=== PATIENT | male | born 1970 | race Two or more races ===

== ENCOUNTER 2020-06-16 16:21 | Emergency (ER) | payer MEDICARE, MEDICAID, SELFPAY ==
--- NOTE | 2020-06-16 16:47 | ECG_ITS ---
Test Reason : RT SIDE CHEST PAIN Blood Pressure : / mmHG Vent. Rate : 071 BPM Atrial Rate : 071 BPM P-R Int : 124 ms QRS Dur : 100 ms QT Int : 368 ms P-R-T Axes : 030 -45 022 degrees QTc Int : 399 ms Normal sinus rhythm Left anterior fascicular block Minimal voltage criteria for LVH, may be normal variant Abnormal ECG When compared with ECG of 24-OCT-2008 19:49, No significant changes seen Referred By: Generic ED Physician Electronically Signed By:RISSA ANSARI MD
[2020-06-16 18:37] VITALS: BP 140/73; PULSE 68; RESP 18; TEMP 36.9; O2SAT 99; BMI 25.7
[2020-06-16 19:59] VITALS: BP 156/77; PULSE 85; RESP 10; TEMP 36.6; O2SAT 98
--- NOTE | 2020-06-16 20:06 | ED_ITS ---
HPI - Chest Pain General Chief Complaint: Chest Pain Stated Complaint: Chest pain Time Seen by Provider: 06/16/20 21:33 Source: patient Mode of arrival: ambulatory Limitations: no limitations History of Present Illness HPI narrative: 50-year-old male no significant past medical history presents with 1 week of substernal chest pain. He does not describe any shortness of breath, dizziness, lightheadedness, nausea, abdominal pain, abdominal distention, fevers or chills. Does not describe any significant physical exertion, trauma or injury. He stated the pain started while he was resting and has remained the same since Friday. The pain does not change with position, exertion, inspiration, or palpation. He does not take any medications, denies illicit drug And alcohol use, and tobacco products. Onset (ago): day(s) (6) Timing of current episode: constant Prior episodes: No Onset: during rest Pain location: substernal Pain radiation: none Severity: moderate Pain scale (0-10): 6 Quality: aching Relieving factors: nothing Exacerbating factors: nothing Treatment prior to arrival: none Risk Factors Coronary artery disease risk factors: none Thoracic aortic dissection risk factors: none Related Data Allergies Allergy/AdvReac Type Severity Reaction Status Date / Time No Known Allergies Allergy Verified 06/16/20 18:39 Review of Systems Review of Systems: Constitutional: No Weight loss, No Fever, No Chills, No Night Sweats, No Fatigue, No Malaise ENT/Mouth: No Hearing loss, No Ear Pain, No Nasal Congestion, No Sinus Pain, No Hoarseness, No sore throat, No Rhinorrhea, No Swallowing Difficulty Eyes: No Eye Pain, No Swelling, No Redness, No Foreign Body, No Discharge, No Vision Changes Cardiovascular: pos Chest Pain, no SOB, no Dyspnea on Exertion, No Orthopnea, No Edema, No Palpitations Respiratory: No Cough, No Sputum, No Wheezing, No Smoke Exposure, No Dyspnea Gastrointestinal: no Nausea, No Vomiting, No Diarrhea, No abdominal Pain, No Hematochezia, No Melena Genitourinary: No irregular bleeding, No Dysuria, No Urinary Frequency, No Hematuria, No Urinary Incontinence, No Urgency, No Flank Pain, No Urinary Flow Changes, No Hesitancy Musculoskeletal: No joint pain, No Myalgias, No Joint Swelling Skin: No Skin Lesions, No rash Neuro: No Weakness, No Numbness, No Paresthesias, No Loss of Consciousness, No Dizziness, No Headache Psych: No Anxiety/Panic, No Depression, No SI/HI/AH/VH Heme/Lymph: No Bruising, No Bleeding,No Lymphadenopathy Endocrine: No Polyuria, No Polydipsia, No Temperature Intolerance FOR[facility] Past Medical History Attestation statement: The following information was validated with the patient. Source: unable to obtain Social History Social History Alcohol intake: never Smoking Status: Never smoker Use of substances other than those prescribed or required for medical reasons: No Advance Directives: No Advance Directives Information Provided: Yes Physical Exam Vital Signs: Vital Signs: Last Vital Signs Temp 98.2 F 06/16/20 21:36 Pulse 80 06/16/20 21:36 Resp 17 06/16/20 21:36 BP 141/78 H 06/16/20 21:36 Pulse Ox 97 06/16/20 21:36 Body Mass Index 25.7 Appearance: Alert. Oriented X3. No acute distress. Eyes: Pupils equal, round and reactive to light. ENT: Pharynx normal. Neck: Normal inspection. Neck supple. CVS: Normal heart rate and rhythm. Pulses normal. Respiratory: No respiratory distress. Breath sounds normal. Abdomen: Soft and nontender. Skin: Skin warm and dry. Normal skin color. Normal skin turgor. Extremities: No lower extremity edema. Neuro: No motor deficit. No sensory deficit. Course Course Course Narrative: 50-year-old male with no significant past medical history presents with 1 week of chest pain that is substernal. Plan of care is to rule out ACS, CBC, Chem 7, Troponin, chest x-ray. labs are unremarkable, troponin is negative, toxicology is negative. Patient is speaking in a harsh tone to RN and this WOOD LATHER regarding length of stay, states that he would like to leave. plan of care discussed with patient, patient should follow-up with his primary care physician for further workup, senior applications developer utilized for all correspondence, Google translate utilized for discharge instructions. Patient verbalized understanding of and agrees to plan of care discharge home. MDM - Chest Pain Differential Diagnosis Differential diagnosis: Likely pneumothorax, atypical chest pain, st elevation myocardial infarction, costochondritis and chest pain Medical Records Data Attestation: I reviewed the patient's medical records. Lab Data Attestation: I reviewed the patient's lab results. Result diagrams: 06/16/20 20:37 06/16/20 20:37 Labs: Lab Results 06/16/20 06/16/20 06/16/20 Range/Units 20:37 20:37 20:37 WBC 10.8 (4.8-10.8) X10*3/uL RBC 5.05 (4.60-5.80) X10*6/uL Hgb 15.9 (14.0-18.0) g/dl Hct 45.5 (42-52) % MCV 90.1 (80-98) fL MCH 31.5 (27.0-33.0) pg MCHC 34.9 (31.0-36.0) g/dl RDW 11.8 (11.0-16.0) % Plt Count 355 (160-400) X10*3/uL MPV 8.9 L (9.4-12.4) fL Immature Gran % (Auto) 0.2 (0.0-0.4) % Neut % (Auto) 71.9 (45-73) % Lymph % (Auto) 21.3 (20-40) % [place] % (Auto) 5.8 (2-11) % Eos % (Auto) 0.4 (0-4) % Baso % (Auto) 0.4 (0-2) % Lymph # (Auto) 2.3 (1.2-4.9) X10*3/uL [place] # (Auto) 0.6 (0.1-1.2) X10*3/uL Eos # (Auto) 0.0 (0.0-0.4) X10*3/uL Baso # (Auto) 0.0 (0.0-0.2) X10*3/uL Abs Immat Gran (auto) 0.02 (0.00-0.03) X10*3/uL Absolute Neuts (auto) 7.7 (2.0-8.3) X10*3/uL Absolute Nucleated RBC 0.000 (0.0-0.012) X10*3/uL Nucleated RBC % (auto) 0.0 (0.0-0.2) /100WBC Sodium 139 (135-145) mmol/L Potassium 3.9 (3.3-5.1) mmol/l Chloride 99 (96-108) mmol/L Carbon Dioxide 29 (22-29) mmol/L Anion Gap 15 (12-20) BUN 13 (9-16) mg/dL Creatinine 1.01 (0.5-1.4) mg/dL Estim Creat Clear Calc 74.0 Estimated GFR > 60 Random Glucose 108 (60-115) mg/dL Calcium 9.6 (8.4-10.2) mg/dL Magnesium 2.1 (1.6-2.6) mg/dL Total Bilirubin 0.4 (0.0-1.0) mg/dL Direct Bilirubin < 0.2 (0.0-0.5) mg/dL AST 20 (5-37) U/L ALT 24 (0-40) U/L Alkaline Phosphatase 65 (39-117) U/L Troponin I High Sens 6.9 (<3.5-35.0) ng/L Total Protein 7.7 (6.5-8.0) g/dL Albumin 4.8 (3.5-5.0) g/dL Lipase 29 (8-78) U/L Urine Opiates Screen (Not Detect) Ur Barbiturates Screen (Not Detect) Ur Phencyclidine Scrn (Not Detect) Ur Amphetamines Screen (Not Detect) U Benzodiazepines Scrn (Not Detect) Urine Cocaine Screen (Not Detect) U Marijuana (THC) Screen (Not Detect) Ethyl Alcohol mg/dL 06/16/20 06/16/20 Range/Units 20:37 20:37 WBC (4.8-10.8) X10*3/uL RBC (4.60-5.80) X10*6/uL Hgb (14.0-18.0) g/dl Hct (42-52) % MCV (80-98) fL MCH (27.0-33.0) pg MCHC (31.0-36.0) g/dl RDW (11.0-16.0) % Plt Count (160-400) X10*3/uL MPV (9.4-12.4) fL Immature Gran % (Auto) (0.0-0.4) % Neut % (Auto) (45-73) % Lymph % (Auto) (20-40) % [place] % (Auto) (2-11) % Eos % (Auto) (0-4) % Baso % (Auto) (0-2) % Lymph # (Auto) (1.2-4.9) X10*3/uL [place] # (Auto) (0.1-1.2) X10*3/uL Eos # (Auto) (0.0-0.4) X10*3/uL Baso # (Auto) (0.0-0.2) X10*3/uL Abs Immat Gran (auto) (0.00-0.03) X10*3/uL Absolute Neuts (auto) (2.0-8.3) X10*3/uL Absolute Nucleated RBC (0.0-0.012) X10*3/uL Nucleated RBC % (auto) (0.0-0.2) /100WBC Sodium (135-145) mmol/L Potassium (3.3-5.1) mmol/l Chloride (96-108) mmol/L Carbon Dioxide (22-29) mmol/L Anion Gap (12-20) BUN (9-16) mg/dL Creatinine (0.5-1.4) mg/dL Estim Creat Clear Calc Estimated GFR Random Glucose (60-115) mg/dL Calcium (8.4-10.2) mg/dL Magnesium (1.6-2.6) mg/dL Total Bilirubin (0.0-1.0) mg/dL Direct Bilirubin (0.0-0.5) mg/dL AST (5-37) U/L ALT (0-40) U/L Alkaline Phosphatase (39-117) U/L Troponin I High Sens (<3.5-35.0) ng/L Total Protein (6.5-8.0) g/dL Albumin (3.5-5.0) g/dL Lipase (8-78) U/L Urine Opiates Screen Not Detected (Not Detect) Ur Barbiturates Screen Not Detected (Not Detect) Ur Phencyclidine Scrn Not Detected (Not Detect) Ur Amphetamines Screen Not Detected (Not Detect) U Benzodiazepines Scrn Not Detected (Not Detect) Urine Cocaine Screen Not Detected (Not Detect) U Marijuana (THC) Screen Not Detected (Not Detect) Ethyl Alcohol < 10 mg/dL Imaging Data Chest x-ray: Attestation: I personally reviewed and interpreted this imaging study as follows: Radiologist's impression: CLINICAL INFORMATION: Chest pain COMPARISON: 10/24/2008 TECHNIQUE: 2 views of the chest were obtained. FINDINGS: There has been mild progression of the thoracic scoliosis convex to the left. The heart and pulmonary vessels are normal. No infiltrates, effusions or lung masses are seen. XR/XR chest 2V IMPRESSION: No acute intrathoracic disease. ECG Data ECG #1: Attestation: I personally reviewed and interpreted this ECG as follows: ECG interpretation date: 06/16/20 ECG interpretation time: 16:59 Interpretation: Vent. Rate : 071 BPM Atrial Rate : 071 BPM P-R Int : 124 ms QRS Dur : 100 ms QT Int : 368 ms P-R-T Axes : 030 -45 022 degrees QTc Int : 399 ms Normal sinus rhythm Left anterior fascicular block Minimal voltage criteria for LVH, may be normal variant Abnormal ECG When compared with ECG of 24-OCT-2008 19:49, ST no longer depressed in Inferior leads Scores Heart Score History: -0- slightly suspicious ECG: -1- non specific repolarization disturbance Age: -1- >45 - <65 Risk factory: -0- no risk factors known Troponin: -0- < or = normal limit Score: 2 Risk: 1.7% Discharge Plan Discharge Clinical Impression: Atypical chest pain Patient Disposition: Home, Self-Care Instructions: Chest Pain (ED) Additional Instructions: se le evalu? darien varias semanas de dolor en el pecho. Por favor, belinda un seguimiento con el m?dico de atenci?n primaria para el seguimiento en la pr?xima semana. Mueller electrocardiograma mostr? mejor?a darien el a?o pasado y es un ritmo sinusal normal con un bloque fascicular cristal. No hay nuevos cambios en mueller electrocardiograma con la excepci?n de la mejora de los cambios de onda ST. Tus enzimas card?acas fueron negativas. Tu radiograf?a de t?rax era normal. Si el dolor en el pecho persiste o tiene problemas para respirar o tiene cualquier otro s?ntoma emergente, por favor regrese al departamento de emergencias inmediatamente. Adam por elegir lory departamento de emergencias para la evaluaci?n. Por favor, belinda un seguimiento con el m?dico de atenci?n primaria seg?n sea necesar io. Regrese al servicio de urgencias para cualquier s?ntoma nuevo, preocupante o que empeore. you were evaluated for several weeks of chest pain. Please follow-up with primary care physician for follow-up in the next week. Your EKG showed improvement over the past year and is normal sinus rhythm with a left fascicular block. No new changes to your EKG with the exception of the improvement of the ST wave changes. Your cardiac enzymes were negative. Your chest x-ray was normal. If chest pain persists or you have trouble breathing or have any other emergent symptoms please return to the emergency department immediately. Thank you for choosing this emergency department for evaluation. Please follow-up with primary care physician as needed. Return to the emergency department for any new, concerning, or worsening symptoms. Discharge Date/Time: 06/16/20 22:29 Print Language: Canadian
--- NOTE | 2020-06-16 20:06 | XR_ITS ---
EXAMINATION: XR CHEST CLINICAL INFORMATION: Chest pain COMPARISON: 10/24/2008 TECHNIQUE: 2 views of the chest were obtained. FINDINGS: There has been mild progression of the thoracic scoliosis convex to the left. The heart and pulmonary vessels are normal. No infiltrates, effusions or lung masses are seen. XR/XR chest 2V IMPRESSION: No acute intrathoracic disease.
[2020-06-16 20:45] LABS: Basophils Percent Auto 0.4 % (0-2); Eosinophils Percent Auto 0.4 % (0-4); Hematocrit 45.5 % (42-52); Hemoglobin 15.9 g/dl (14.0-18.0); Imm Gran Abs Auto 0.02 X10*3/uL (0.00-0.03); Imm Gran Pct Auto 0.2 % (0.0-0.4); Lymphocytes Absolute Auto 2.3 X10*3/uL (1.2-4.9); Lymphocytes Percent Auto 21.3 % (20-40); MANUAL DIFF FLAG NO; Mean Corpuscular HGB Conc 34.9 g/dl (31.0-36.0); Mean Corpuscular Hemoglobin 31.5 pg (27.0-33.0); Mean Corpuscular Volume 90.1 fL (80-98); Mean Platelet Volume 8.9 fL (9.4-12.4); Monocytes Absolute Auto 0.6 X10*3/uL (0.1-1.2); Monocytes Percent Auto 5.8 % (2-11); Neutrophils Absolute Auto 7.7 X10*3/uL (2.0-8.3); Neutrophils Percent Auto 71.9 % (45-73); Platelet Count 355 X10*3/uL (160-400); Red Blood Count 5.05 X10*6/uL (4.60-5.80); Red Cell Distribution Width 11.8 % (11.0-16.0); White Blood Count 10.8 X10*3/uL (4.8-10.8)
[2020-06-16 21:07] LABS: Ethanol < 10 mg/dL
[2020-06-16 21:10] LABS: Alanine Aminotransferase 24 U/L (0-40); Albumin Level 4.8 g/dL (3.5-5.0); Alkaline Phosphatase 65 U/L (39-117); Amphetamine Screen Urine Not Detected (Not Detect); Anion Gap 15 (12-20); Aspartate Amino Transferase 20 U/L (5-37); Barbiturates, Urine Not Detected (Not Detect); Benzodiazepines Screen Urine Not Detected (Not Detect); Bilirubin Direct < 0.2 mg/dL (0.0-0.5); Bilirubin Total 0.4 mg/dL (0.0-1.0); Blood Urea Nitrogen 13 mg/dL (9-16); Calcium 9.6 mg/dL (8.4-10.2); Cannabinoid Screen Urine Not Detected (Not Detect); Carbon Dioxide 29 mmol/L (22-29); Chloride 99 mmol/L (96-108); Cocaine Screen Urine Not Detected (Not Detect); Estimated Glomerular Filt Rate > 60; Glucose Random 108 mg/dL (60-115); Lipase 29 U/L (8-78); Magnesium 2.1 mg/dL (1.6-2.6); Opiate Screen Urine Not Detected (Not Detect); Phencyclidine Screen Urine Not Detected (Not Detect); Potassium 3.9 mmol/l (3.3-5.1); Sodium 139 mmol/L (135-145); Total Protein 7.7 g/dL (6.5-8.0)
[2020-06-16 21:12] LABS: Troponin-I High Sensitivity 6.9 ng/L (<3.5-35.0)
[2020-06-16 21:36] VITALS: BP 141/78; PULSE 80; RESP 17; TEMP 36.8; O2SAT 97
== END 2020-06-16 22:29 | disposition home or self-care (01) ==
PROVIDERS: Nurse Practitioner Family; Emergency Provider Emergency Medicine
DX: R07.9 Chest pain, unspecified (principal)
CPT/HCPCS: 36415; 71046; 80048; 80076; 80307; 80320; 83690; 83735; 84484; 85025; 93005; 99284

== ENCOUNTER 2020-07-19 14:43 | Outpatient (REF) | payer MEDICARE, MEDICAID, SELFPAY | END 2020-07-19 14:44 | disposition home or self-care (01) | LOC: HO.LAB 14:43 | PROVIDERS: Visit Provider Internal Medicine | DX: Z20.828 Contact with and (suspected) exposure to other viral communicable diseases (principal) | CPT/HCPCS: C9803; U0003 ==

== ENCOUNTER 2021-03-13 10:57 | Outpatient (REF) | payer MEDICARE, MEDICAID, SELFPAY ==
[2021-03-14 13:57] LABS: H Pylori Breath Test DETECTED (NOT DETECTED)
== END 2021-03-13 10:58 | disposition home or self-care (01) ==
LOC: CF 10:57
PROVIDERS: Referring Provider Nurse Practitioner; Visit Provider Nurse Practitioner Family
DX: K21.9 Gastro-esophageal reflux disease without esophagitis (principal); R13.10 Dysphagia, unspecified; I10 Essential (primary) hypertension; Z86.69 Personal history of other diseases of the nervous system and sense organs; Z11.0 Encounter for screening for intestinal infectious diseases
CPT/HCPCS: 83013; 99202

== ENCOUNTER → 2021-04-18 13:33 | Outpatient (BNVA) | payer MEDICARE, MEDICAID, SELFPAY | PROVIDERS: Visit Provider Nurse Practitioner Family | DX: K21.9 Gastro-esophageal reflux disease without esophagitis (principal); R13.10 Dysphagia, unspecified | CPT/HCPCS: Q3014 ==

== ENCOUNTER → 2021-06-01 14:32 | Outpatient (BNVA) | payer MEDICARE, MEDICAID, SELFPAY | PROVIDERS: Visit Provider Nurse Practitioner Family | DX: Z13.89 Encounter for screening for other disorder (principal) | CPT/HCPCS: Q3014 ==

== ENCOUNTER 2021-08-31 08:18 | Day surgery (SDC) | payer MEDICARE, MEDICAID, SELFPAY ==
--- NOTE | 2021-08-30 10:28 | P.CONAN_ITS ---
Documented by User: Yanni Ortega NP 08/30/21 10:29 HPI - Anesthesia Eval Consult details Narrative: 51yo M for Upper Endoscopy and Colonoscopy [facility] Past Medical History Medical History Anxiety Dysphagia HTN (hypertension) Hx of seizure disorder Hyperlipidemia Kinetic tremor Mental disability Prediabetes Vitamin D deficiency Surgical History Surgical History Hx of hernia repair Social History Social History Alcohol intake: never Patient Tobacco Use Status: Never used Tobacco Use of substances other than those prescribed or required for medical reasons: No Are you DNR?: No Advance Directives: No Advance Directives Information Provided: Yes Recently lost weight without trying: No Meds Allergies Allergy/AdvReac Type Severity Reaction Status Date / Time No Known Allergies Allergy Verified 06/01/21 14:32 Home Medications Medication Instructions Recorded Confirmed Last Taken Type amlodipine 10 mg 10 mg PO DAILY 03/13/21 08/27/21 Unknown History tablet atorvastatin 10 10 mg PO DAILY 03/13/21 08/27/21 Unknown History mg tablet ketoconazole 2 % TOPICAL 03/13/21 Unknown History shampoo DIRECTED valproic acid 250 250 mg PO Q12H 03/13/21 08/27/21 Unknown History mg capsule valsartan 160 1 tab PO DAILY 03/13/21 08/27/21 Unknown History mg-hydrochlorothi azide 25 mg tablet cholecalciferol 50 mcg PO DAILY 08/27/21 08/27/21 Unknown History (vitamin D3) 50 mcg (2,000 unit) capsule (Vitamin D3) clonidine HCl 0.1 0.1 mg PO 08/27/21 08/27/21 Unknown History mg tablet BEDTIME Exam Exam Date and Time: August 30, 2021 1028 Assessment and Plan Assessment Anesthesia Assessment: Chart Reviewed Documented by User: Roseanne Cao MD 08/31/21 09:29 [facility] Past Medical History Medical History Anxiety Dysphagia HTN (hypertension) Hx of seizure disorder Hyperlipidemia Kinetic tremor Mental disability Prediabetes Vitamin D deficiency Surgical History Surgical History Hx of hernia repair History of Problems with Anesthesia: No Social History Social History Alcohol intake: never Patient Tobacco Use Status: Never used Tobacco Use of substances other than those prescribed or required for medical reasons: No Are you DNR?: No Advance Directives: No Advance Directives Information Provided: Yes Recently lost weight without trying: No Meds Allergies Allergy/AdvReac Type Severity Reaction Status Date / Time No Known Allergies Allergy Verified 06/01/21 14:32 Home Medications Medication Instructions Recorded Confirmed Last Taken Type amlodipine 10 mg 10 mg PO DAILY 03/13/21 08/27/21 Unknown History tablet atorvastatin 10 10 mg PO DAILY 03/13/21 08/27/21 Unknown History mg tablet ketoconazole 2 % TOPICAL 03/13/21 Unknown History shampoo DIRECTED valproic acid 250 250 mg PO Q12H 03/13/21 08/27/21 Unknown History mg capsule valsartan 160 1 tab PO DAILY 03/13/21 08/27/21 Unknown History mg-hydrochlorothi azide 25 mg tablet cholecalciferol 50 mcg PO DAILY 08/27/21 08/27/21 Unknown History (vitamin D3) 50 mcg (2,000 unit) capsule (Vitamin D3) clonidine HCl 0.1 0.1 mg PO 08/27/21 08/27/21 Unknown History mg tablet BEDTIME Exam Airway Mallampati Class: II TM Dist: >3cm Neck ROM: Full Loose/Missing/Broken Teeth: Yes and Upper Heart: RRR Lungs: CTA Assessment and Plan Assessment Anesthesia Assessment: Anesthesia Plan Discussed Final Anesthetic Review History of Problems with Anesthesia: No NPO: Yes ASA Class: II Final Preanesthetic Review: Meds/Allgs Chart Reviewed, Consent Obtained/Reviewed and Anes Risks/Benef Reviewed Patient Risk: Low Procedure Risk: Intermediate Anesthetic Plan Anesthetic Plan: MAC: Disposition: Standard PACU
--- NOTE | 2021-08-30 10:28 | HO.ANESPROP2 ---
Documented by User: Yanni Ortega NP 08/30/21 10:29 HPI - Anesthesia Eval Consult details Narrative: 51yo M for Upper Endoscopy and Colonoscopy [facility] Past Medical History Medical History Anxiety Dysphagia HTN (hypertension) Hx of seizure disorder Hyperlipidemia Kinetic tremor Mental disability Prediabetes Vitamin D deficiency Surgical History Surgical History Hx of hernia repair Social History Social History Alcohol intake: never Patient Tobacco Use Status: Never used Tobacco Use of substances other than those prescribed or required for medical reasons: No Are you DNR?: No Advance Directives: No Advance Directives Information Provided: Yes Recently lost weight without trying: No Meds Allergies Allergy/AdvReac Type Severity Reaction Status Date / Time No Known Allergies Allergy Verified 06/01/21 14:32 Home Medications Medication Instructions Recorded Confirmed Last Taken Type amlodipine 10 mg tablet 10 mg PO DAILY 03/13/21 08/27/21 Unknown History atorvastatin 10 mg tablet 10 mg PO DAILY 03/13/21 08/27/21 Unknown History ketoconazole 2 % shampoo TOPICAL DIRECTED 03/13/21 Unknown History valproic acid 250 mg capsule 250 mg PO Q12H 03/13/21 08/27/21 Unknown History valsartan 160 1 tab PO DAILY 03/13/21 08/27/21 Unknown History mg-hydrochlorothiazide 25 mg tablet cholecalciferol (vitamin D3) 50 50 mcg PO DAILY 08/27/21 08/27/21 Unknown History mcg (2,000 unit) capsule (Vitamin D3) clonidine HCl 0.1 mg tablet 0.1 mg PO BEDTIME 08/27/21 08/27/21 Unknown History Exam Exam Date and Time: August 30, 2021 1028 Assessment and Plan Assessment Anesthesia Assessment: Chart Reviewed Documented by User: Roseanne Cao MD 08/31/21 09:29 [facility] Past Medical History Medical History Anxiety Dysphagia HTN (hypertension) Hx of seizure disorder Hyperlipidemia Kinetic tremor Mental disability Prediabetes Vitamin D deficiency Surgical History Surgical History Hx of hernia repair History of Problems with Anesthesia: No Social History Social History Alcohol intake: never Patient Tobacco Use Status: Never used Tobacco Use of substances other than those prescribed or required for medical reasons: No Are you DNR?: No Advance Directives: No Advance Directives Information Provided: Yes Recently lost weight without trying: No Meds Allergies Allergy/AdvReac Type Severity Reaction Status Date / Time No Known Allergies Allergy Verified 06/01/21 14:32 Home Medications Medication Instructions Recorded Confirmed Last Taken Type amlodipine 10 mg tablet 10 mg PO DAILY 03/13/21 08/27/21 Unknown History atorvastatin 10 mg tablet 10 mg PO DAILY 03/13/21 08/27/21 Unknown History ketoconazole 2 % shampoo TOPICAL DIRECTED 03/13/21 Unknown History valproic acid 250 mg capsule 250 mg PO Q12H 03/13/21 08/27/21 Unknown History valsartan 160 1 tab PO DAILY 03/13/21 08/27/21 Unknown History mg-hydrochlorothiazide 25 mg tablet cholecalciferol (vitamin D3) 50 50 mcg PO DAILY 08/27/21 08/27/21 Unknown History mcg (2,000 unit) capsule (Vitamin D3) clonidine HCl 0.1 mg tablet 0.1 mg PO BEDTIME 08/27/21 08/27/21 Unknown History Exam Airway Mallampati Class: II TM Dist: >3cm Neck ROM: Full Loose/Missing/Broken Teeth: Yes and Upper Heart: RRR Lungs: CTA Assessment and Plan Assessment Anesthesia Assessment: Anesthesia Plan Discussed Final Anesthetic Review History of Problems with Anesthesia: No NPO: Yes ASA Class: II Final Preanesthetic Review: Meds/Allgs Chart Reviewed, Consent Obtained/Reviewed and Anes Risks/Benef Reviewed Patient Risk: Low Procedure Risk: Intermediate Anesthetic Plan Anesthetic Plan: MAC: Disposition: Standard PACU
--- NOTE | 2021-08-31 08:52 | MHC.SHP ---
Pre-Procedural Eval Section A Date of Service: 08/31/21 The patient is an INPATIENT: No The History & Physical has been completed within 30 days and I have reviewed it.: No Section B Chief Complaint: reflux disease,screening Details of Present Illness: Colon cancer screening, GERD Relevant Family History (Specify if Yes): No Relevant Social History: None Present Medications: see Short Stay Collaborative assessment Medical History: Significant History (HTN (hypertension) Mental disability Prediabetes) History of Previous Operations: Relevant previous surgery/procedure and date(s) (History of hernia repair) Allergies: Allergies Allergy/AdvReac Type Severity Reaction Status Date / Time No Known Allergies Allergy Verified 06/01/21 14:32 Review of Systems Sugical H&P ROS: Negative: Constitution, Cardiovascular and Respiratory and Yes, Specify: Gastrointestinal (GERD) Exam Surgical H&P Exam: Normal: Heart, Normal: Lungs, Normal: Extremities and Normal: Abdomen and Significant Findings: Neurological (Mental disability) Plan Diagnosis/Plan: Unchanged I have reviewed the history and physical and performed a pertinent physical examination on my patient. No changes have occurred unless specified.
--- NOTE | 2021-08-31 08:58 | P.BOP_ITS ---
Brief Operative Note Date of Service: 08/31/21 Pre-op diagnosis: Colon cancer screening, GERD Post-op diagnosis: other (GERD, gastritis, gastric polyp, colon polyp, diverticulosis, hemorrhoids) Procedure: FLEXIBLE TRANSORAL UPPER GASTROINTESTINAL ENDOSCOPY WITH BIOPSIES AND COLONOSCOPY TILL CECUM WITH BIOPSIES UPPER ENDOSCOPY Consent: Indications for the procedure and potential complications of bleeding, perforation, reaction to medications and missed diagnosis were discussed with the patient and informed consent was obtained. Instrument: Olympus GIF H 190 mid size upper endoscope Monitoring: Vital signs and clinical assessment, continuous EKG monitoring, Pulse oximetry, Carbon Dioxide monitoring and blood pressure monitoring were done throughout the procedure. Procedure: The patient was placed in the left lateral decubitis position and pre-procedure medications were administered and a bite block was placed. The endoscope was inserted into the mouth and advanced under direct vision to the third part of duodenum. A careful inspection was made as the upper endoscope was withdrawn including a retroflexed examination of the proximal stomach; Findings and interventions are described below. Findings: Larynx: Normal Esophagus: Mildly tortuous esophagus with increased tertiary contractions without stricture or ring. GE junction at 36. No esophagitis or Guaman's. Stomach: A 3-4 mm benign appearing polyp in the fundus - biopsied. Mild gastric erythema. Biopsies were obtained. Grade 2 flap valve on retroflexed examination of the cardia. Duodenum: Normal bulb and descending duodenum Intervention: Biopsies as noted above COLONOSCOPY PROCEDURE NOTE Consent: Indications for the procedure and potential complications of bleeding, perforation, reaction to medications and missed diagnosis were discussed with the patient and informed consent was obtained. Instrument: Olympus PCF H 190 L variable stiffness pediatric colonoscope Monitoring: Vital signs and clinical assessment, intermittent blood pressure monitoring, continuous EKG monitoring, Pulse oximetry and Carbon Dioxide monitoring were done throughout the procedure. Colon withdrawl time was 16 minutes. Procedure: The patient was placed in the left lateral decubitis position and pre-procedure medications were administered. After a digital rectal examination of the ano-rectum, the video colonoscope was inserted into the rectum and advanced through the colon to the cecum. The colonoscope was slowly withdrawn in a retrograde panoramic fashion and the colon mucosa was carefully examined including a retroflexed view of the rectum. Findings and interventions are described below. Procedure Difficulty: : Without difficulty Findings: Terminal Ileum: Not evaluated Cecum: Normal Ascending Colon: A 3-4 mm diminutive appearing polyp in the distal AC removed with a cold bx. Scattered mild to moderate diverticulosis throughout the colon Transverse Colon: Scattered mild to moderate diverticulosis throughout the colon Descending Colon: Scattered mild to moderate diverticulosis throughout the colon Sigmoid Colon: Moderate diverticulosis Rectum: Normal Ano-rectum: Moderate internal hemorrhoids Colon preparation: Excellent Impression and Post Procedure Diagnosis: Endoscopy Findings: ESOPHAGUS: Mildly tortuous esophagus with increased tertiary contractions without stricture or ring. GE junction at 36. No esophagitis or Guaman's. STOMACH: Gastritis and gastric polyp Colonoscopy Findings: One small diminutive appearing polyp removed Moderate diverticulosis seen in the entire colon Moderate hemorrhoids on retroflexed exam. Plan: Await pathology results Patient has an appointment on 09/11/21 in the [facility] with Janette Rojas FNP- [facility]. Repeat Colonoscopy interval based on path results - in 5 years if polyps are adenomatous and 10 years if polyps are hyperplastic. Above findings were reviewed with the patient and his sister and GERD, Gastric polyps, colon polyps and diverticulosis handouts were given in the discharge area Surgeon: Raeann Zhong MD Anesthesia: MAC (Dr Cao) Was an Infrastructure Administrator used for this Procedure?: Yes Infrastructure Administrator: Shelby Davis Estimated blood loss (mL): 0 Pathology: other ( A. gastric antrum, R/O H. pylori B. gastric polyp C. ascending colon polyp) Condition: stable Disposition: PACU
[2021-08-31 09:04] VITALS: BP 151/80; PULSE 95; RESP 20; TEMP 37.4; O2SAT 99; BMI 25.7
--- NOTE | 2021-08-31 09:23 | P.OP_ITS ---
Operative Note Operative Note Date of Service: 08/31/21 Narrative: Pre-op diagnosis: Colon cancer screening, GERD Post-op diagnosis:?other (GERD, gastritis, gastric polyp, colon polyp, diverticulosis, hemorrhoids) Procedure: FLEXIBLE TRANSORAL UPPER GASTROINTESTINAL ENDOSCOPY WITH BIOPSIES AND COLONOSCOPY TILL CECUM WITH BIOPSIES UPPER ENDOSCOPY Consent:?Indications for the procedure and potential complications of bleeding, perforation, reaction to medications and missed diagnosis were discussed with the patient and informed consent was obtained. Instrument:?Olympus GIF H 190 mid size upper endoscope Monitoring: Vital signs and clinical assessment, continuous EKG monitoring, Pulse oximetry, Carbon Dioxide monitoring and blood pressure monitoring were done throughout the procedure. Procedure:?The patient was placed in the left lateral decubitis position and pre-procedure medications were administered and a bite block was placed. The endoscope was inserted into the mouth and advanced under direct vision to the third part of duodenum. A careful inspection was made as the upper endoscope was withdrawn including a retroflexed examination of the proximal stomach; Findings and interventions are described below. Findings: Larynx:? Normal Esophagus:?Mildly tortuous esophagus with increased tertiary contractions without stricture or ring. GE junction at 36.? No esophagitis or Guaman's. Stomach:?A 3-4 mm benign appearing polyp in the fundus - biopsied.? Mild gastric erythema. Biopsies were obtained. Grade 2 flap valve on retroflexed examination of the cardia. Duodenum:?Normal bulb and descending duodenum Intervention:?Biopsies as noted above COLONOSCOPY PROCEDURE NOTE Consent:?Indications for the procedure and potential complications of bleeding, perforation, reaction to medications and missed diagnosis were discussed with the patient and informed consent was obtained. Instrument:?Olympus PCF H 190 L variable stiffness pediatric colonoscope Monitoring:?Vital signs and clinical assessment, intermittent blood pressure monitoring, continuous EKG monitoring, Pulse oximetry and Carbon Dioxide monitoring were done throughout the procedure. Colon withdrawl time was 16 minutes. Procedure:?The patient was placed in the left lateral decubitis position and pre-procedure medications were administered. After a digital rectal examination of the ano-rectum, the video colonoscope was inserted into the rectum and advanced through the colon to the cecum. The colonoscope was slowly withdrawn in a retrograde panoramic fashion and the colon mucosa was carefully examined including a retroflexed view of the rectum. Findings and interventions are described below. Procedure Difficulty:?: Without difficulty Findings: Terminal Ileum: Not evaluated Cecum:? Normal Ascending Colon:??A 3-4 mm diminutive appearing polyp in the distal AC removed with a cold bx. Scattered mild to moderate diverticulosis throughout the colon Transverse Colon:??Scattered mild to moderate diverticulosis throughout the colon Descending Colon:? Scattered mild to moderate diverticulosis throughout the colon Sigmoid Colon:??Moderate diverticulosis Rectum:??Normal Ano-rectum:??Moderate internal hemorrhoids Colon preparation: Excellent ? Impression and Post Procedure Diagnosis: Endoscopy Findings: ESOPHAGUS: Mildly tortuous esophagus with increased tertiary contractions without stricture or ring. GE junction at 36.? No esophagitis or Guaman's. STOMACH: Gastritis and gastric polyp Colonoscopy Findings: One small diminutive appearing polyp removed Moderate diverticulosis seen in the entire colon Moderate hemorrhoids on retroflexed exam. Plan: Await pathology results Patient has an appointment on 09/11/21 in the GI Clinic with Janette Rojas FNP- [place]. Repeat Colonoscopy interval based on path results - in 5 years if polyps are adenomatous and 10 years if polyps are hyperplastic. Above findings were reviewed with the patient and his sister and GERD, Gastric polyps, colon polyps and diverticulosis handouts were given in the discharge area Surgeon: Raeann Zhong MD Anesthesia:?MAC (Dr Cao) Was an Lunch Wagon Operator used for this Procedure?:?Yes Lunch Wagon Operator:?Shelby Davis Estimated blood loss (mL):?0 Pathology:?other ( A. gastric antrum, R/O H. pylori? B. gastric polyp? C. ascending colon polyp) Condition:?stable Disposition:?PACU
[2021-08-31 10:30] VITALS: BP 90/50; PULSE 63; RESP 18; TEMP 36.4; O2SAT 99
[2021-08-31 10:45] VITALS: BP 94/56; PULSE 80; RESP 18; O2SAT 98
[2021-08-31 11:00] VITALS: BP 109/74; PULSE 80; RESP 18; TEMP 36.4; O2SAT 98
== END 2021-08-31 11:38 | disposition home or self-care (01) ==
LOC: HO.SSS 08:19
PROVIDERS: PCP Nurse Practitioner; Visit Provider Internal Medicine Gastroenterology
PROC: (CPT 45380; principal; 2021-08-31 09:10)
DX: Z12.11 Encounter for screening for malignant neoplasm of colon (principal); K63.5 Polyp of colon; K57.30 Diverticulosis of large intestine without perforation or abscess without bleeding; K64.8 Other hemorrhoids; K21.9 Gastro-esophageal reflux disease without esophagitis; K29.50 Unspecified chronic gastritis without bleeding; K31.7 Polyp of stomach and duodenum; I10 Essential (primary) hypertension; R73.03 Prediabetes; G40.909 Epilepsy, unspecified, not intractable, without status epilepticus; Z79.899 Other long term (current) drug therapy
CPT/HCPCS: 45380; 43239; 88305; 88342

== ENCOUNTER → 2021-10-08 15:38 | Outpatient (BNVA) | payer MEDICARE, MEDICAID, SELFPAY | PROVIDERS: PCP Nurse Practitioner; Referring Provider Nurse Practitioner; Visit Provider Nurse Practitioner Family | DX: K21.9 Gastro-esophageal reflux disease without esophagitis (principal); R13.10 Dysphagia, unspecified; Z98.890 Other specified postprocedural states | CPT/HCPCS: 99212 ==

== ENCOUNTER 2021-10-29 22:16 | Emergency (ER) | payer MEDICARE, MEDICAID, SELFPAY ==
--- NOTE | ~2021-10-29 | CT_ITS ---
EXAMINATION: CT HEAD WITHOUT CONTRAST CLINICAL INFORMATION: Dizziness COMPARISON: MRI brain dated 02/24/2015 TECHNIQUE: Contiguous axial imaging was performed from the skull base to vertex without intravenous administration of contrast. This CT examination was performed using dose optimization techniques as appropriate, variously including the following: *Automated exposure control *Adjustment of mA and/or kV according to patient size (this includes techniques or standardized protocols for targeted exams where dose is matched to indication/reason for exam; i.e. extremities or head) *Use of iterative reconstruction technique DLP: 740 mGy-cm FINDINGS: There is no evidence of acute intracranial hemorrhage or territorial infarction. No abnormal mass effect or midline shift is seen. Aguilar to white matter differentiation is well preserved. No extra-axial fluid collections are identified. The ventricles are normal in size. 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 Mild patchy subcortical and periventricular white matter low-attenuation changes statistically related to chronic white matter small vessel ischemic disease. The osseous structures and soft tissues are normal. Small mucous retention cyst within the left maxillary sinus. Remainder of the paranasal sinuses are clear. Mastoid air cells are clear. CT/CT head/brain wo con IMPRESSION: No acute intracranial pathology.
--- NOTE | ~2021-10-29 | XR_ITS ---
EXAMINATION: XR HIP, RIGHT CLINICAL INFORMATION: Hip pain COMPARISON: None TECHNIQUE: Single AP view of the pelvis Two views of the right hip. FINDINGS: Bones and soft tissues are normal. No fracture. Alignment is anatomic. Hip joint space is maintained. XR/XR hip RT min 2V IMPRESSION: Normal right hip.
[2021-10-29 23:00] VITALS: BP 153/82; PULSE 75; RESP 16; TEMP 36.9; O2SAT 99; BMI 10.8
[2021-10-29 23:14] VITALS: BMI 24.0
[2021-10-29 23:15] VITALS: BP 153/82; PULSE 75; RESP 16; TEMP 36.9; O2SAT 99
[2021-10-29 23:20] LABS: Glucose, Whole Blood 130 mg/dL (60-115)
[2021-10-29 23:48] LABS: Hematocrit 41.8 % (42.0-52.0); Hemoglobin 14.9 g/dl (14.0-18.0); Mean Corpuscular HGB Conc 35.6 g/dl (31.0-36.0); Mean Corpuscular Hemoglobin 31.7 pg (27.0-33.0); Mean Corpuscular Volume 88.9 fL (80.0-98.0); Mean Platelet Volume 8.9 fL (9.4-12.4); Platelet Count 326 X10*3/uL (160-400); Red Cell Distribution Width 11.7 % (11.0-16.0); White Blood Count 13.5 X10*3/uL (4.8-10.8)
[2021-10-30 00:10] LABS: Alanine Aminotransferase 22 U/L (0-40); Albumin Level 4.3 g/dL (3.5-5.0); Alkaline Phosphatase 65 U/L (39-117); Anion Gap 12 (12-20); Aspartate Amino Transferase 17 U/L (5-37); Bilirubin Total 0.4 mg/dL (0.0-1.0); Blood Urea Nitrogen 14 mg/dL (9-16); Calcium 9.4 mg/dL (8.4-10.2); Carbon Dioxide 30 mmol/L (22-29); Chloride 98 mmol/L (96-108); Creatinine Clr Calc Pharmacy 67.2; Estimated Glomerular Filt Rate > 60; Glucose Random 132 mg/dL (60-115); Potassium 3.5 mmol/L (3.3-5.1); Sodium 136 mmol/L (135-145)
[2021-10-30 03:41] LABS: Glucose, Whole Blood 143 mg/dL (60-115)
--- NOTE | 2021-10-30 03:54 | ED.GENADULT ---
HPI - General Adult General Chief complaint: General Medical Stated complaint: ?low blood sugar,dizziness ,fell Time Seen by Provider: 10/30/21 03:54 Source: patient Mode of arrival: ambulatory Limitations: no limitations History of Present Illness HPI narrative: Patient states he has been dizzy for 24 hours. Onset (ago): day(s) Severity: mild Pain Consistency: intermittent Associated symptoms: denies other symptoms Related Data Home Medications Medication Instructions Recorded Confirmed amlodipine 10 mg tablet 10 mg PO DAILY 03/13/21 08/27/21 atorvastatin 10 mg tablet 10 mg PO DAILY 03/13/21 08/27/21 ketoconazole 2 % shampoo TOPICAL DIRECTED 03/13/21 valproic acid 250 mg capsule 250 mg PO Q12H 03/13/21 08/27/21 valsartan 160 1 tab PO DAILY 03/13/21 08/27/21 mg-hydrochlorothiazide 25 mg tablet cholecalciferol (vitamin D3) 50 50 mcg PO DAILY 08/27/21 08/27/21 mcg (2,000 unit) capsule (Vitamin D3) clonidine HCl 0.1 mg tablet 0.1 mg PO BEDTIME 08/27/21 08/27/21 Previous Rx's Medication Instructions Recorded omeprazole 20 mg capsule,delayed 20 mg PO BID #180 cap 10/08/21 release Allergies Allergy/AdvReac Type Severity Reaction Status Date / Time No Known Allergies Allergy Verified 10/08/21 15:40 Review of Systems Constitutional: Constitutional: Reports no additional constitutional complaints Eyes: Eyes: Reports no additional eye complaints ENT: Denies dizziness Cardiovascular: Cardiovascular: Reports no additional cardiovascular complaints Respiratory: Respiratory: Reports as per HPI Gastrointestinal: Gastrointestinal: Reports no additional gastrointestinal complaints Musculoskeletal: Musculoskeletal: Reports no additional musculoskeletal complaints Integumentary/Breasts: Skin/Breast: Denies rash Neurologic: Reports system reviewed and no additional complaints, except as documented, Denies dizziness and Denies Sensory deficit (Neuro) Psychiatric: Psychiatric: Denies anxiety PMFSH Past Medical History Medical History Anxiety Dysphagia HTN (hypertension) Hx of seizure disorder Hyperlipidemia Kinetic tremor Mental disability Prediabetes Vitamin D deficiency Surgical History Hx of colonoscopy Hx of esophagogastroduodenoscopy Hx of hernia repair Social History Social History Alcohol intake: never Patient Tobacco Use Status: Never used Tobacco Advance Directives: No Advance Directives Information Provided: No Physical Exam ED Vital Signs: Vital Signs - 24 hr 10/29/21 23:00 10/29/21 23:15 Temperature 98.5 F 98.5 F Pulse Rate 75 75 Respiratory Rate 16 16 Blood Pressure 153/82 H 153/82 H Pulse Oximetry 99 99 BMI result Body Mass Index 24.0 Const Other: Patient with MR and tremor Nutritional Appearance: average body habitus Limitations: behavioral limitations and language barrier HENMT Head: Yes normal to inspection Ears: external ears normal General nose exam: Normal external nose present Mouth: Normal oral and palatal mucosa present and oropharynx normal Throat: Yes posterior oropharynx normal Eyes General: appearance normal, both eyes and all related structures Neck Neck: Yes normal visual inspection Chest Chest palpation & inspection: normal inspection of the chest Resp Auscultation: clear to auscultation bilaterally Cardio Jugular venous distension: no JVD Rate: regular rate Rhythm: regular rhythm Heart sounds: S1 normal heart sound present and S2 normal heart sound present GI Inspection: Yes normal to inspection Palpation (GI): Soft to palpation, nontender and No hepatosplenomegaly present Auscultation: normal bowel sounds General: Yes no CVA tenderness Back/Spine/Pelvis Back: no CVA tenderness Skin General skin exam: no rashes or lesions noted Neuro Other: moves all extremities with tremors Cranial nerves: Yes CN's II-XII intact bilaterally Motor exam (neuro): 5/5 motor strength present throughout Sensory Exam: No Sensory deficit (Neuro) Extrem Other: right hip tenderness Psych Appearance: grossly normal Course Reevaluation(s) Reevaluation #1: labs and CT scan are normal will dc home Time: 05:20 Medical Decision Making Lab Data Result diagrams: 10/29/21 23:44 10/29/21 23:44 Labs: Lab Results 10/29/21 10/29/21 10/29/21 Range/Units 23:11 23:44 23:44 WBC 13.5 H (4.8-10.8) X10*3/uL RBC 4.70 (4.60-5.80) X10*6/uL Hgb 14.9 (14.0-18.0) g/dl Hct 41.8 L (42.0-52.0) % MCV 88.9 (80.0-98.0) fL MCH 31.7 (27.0-33.0) pg MCHC 35.6 (31.0-36.0) g/dl RDW 11.7 (11.0-16.0) % Plt Count 326 (160-400) X10*3/uL MPV 8.9 L (9.4-12.4) fL Absolute Nucleated RBC 0.000 (0.0-0.012) X10*3/uL Nucleated RBC % (auto) 0.0 (0.0-0.2) /100WBC Sodium 136 (135-145) mmol/L Potassium 3.5 (3.3-5.1) mmol/L Chloride 98 (96-108) mmol/L Carbon Dioxide 30 H (22-29) mmol/L Anion Gap 12 (12-20) BUN 14 (9-16) mg/dL Creatinine 1.10 (0.5-1.4) mg/dL Estim Creat Clear Calc 67.2 Estimated GFR > 60 POC Glucose 130 H (60-115) mg/dL Random Glucose 132 H (60-115) mg/dL Calcium 9.4 (8.4-10.2) mg/dL Total Bilirubin 0.4 (0.0-1.0) mg/dL AST 17 (5-37) U/L ALT 22 (0-40) U/L Alkaline Phosphatase 65 (39-117) U/L Total Protein 7.0 (6.5-8.0) g/dL Albumin 4.3 (3.5-5.0) g/dL 10/30/21 Range/Units 03:34 WBC (4.8-10.8) X10*3/uL RBC (4.60-5.80) X10*6/uL Hgb (14.0-18.0) g/dl Hct (42.0-52.0) % MCV (80.0-98.0) fL MCH (27.0-33.0) pg MCHC (31.0-36.0) g/dl RDW (11.0-16.0) % Plt Count (160-400) X10*3/uL MPV (9.4-12.4) fL Absolute Nucleated RBC (0.0-0.012) X10*3/uL Nucleated RBC % (auto) (0.0-0.2) /100WBC Sodium (135-145) mmol/L Potassium (3.3-5.1) mmol/L Chloride (96-108) mmol/L Carbon Dioxide (22-29) mmol/L Anion Gap (12-20) BUN (9-16) mg/dL Creatinine (0.5-1.4) mg/dL Estim Creat Clear Calc Estimated GFR POC Glucose 143 H (60-115) mg/dL Random Glucose (60-115) mg/dL Calcium (8.4-10.2) mg/dL Total Bilirubin (0.0-1.0) mg/dL AST (5-37) U/L ALT (0-40) U/L Alkaline Phosphatase (39-117) U/L Total Protein (6.5-8.0) g/dL Albumin (3.5-5.0) g/dL Imaging Data CT scan - head: Radiologist's impression: FINDINGS: There is no evidence of acute intracranial hemorrhage or territorial infarction. No abnormal mass effect or midline shift is seen. Aguilar to white matter differentiation is well preserved. No extra-axial fluid collections are identified. The ventricles are normal in size. 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 Mild patchy subcortical and periventricular white matter low-attenuation changes statistically related to chronic white matter small vessel ischemic disease. The osseous structures and soft tissues are normal. Small mucous retention cyst within the left maxillary sinus. Remainder of the paranasal sinuses are clear. Mastoid air cells are clear. ? CT/CT head/brain wo con IMPRESSION: No acute intracranial pathology. hip xray: Radiologist's impression: FINDINGS: Bones and soft tissues are normal. No fracture. Alignment is anatomic. Hip joint space is maintained.? XR/XR hip RT min 2V IMPRESSION: Normal right hip. ? ECG Data Attestation: I personally reviewed and interpreted this ECG as follows: Interpretation: sinus 80, flattening of st segments laterally Discharge Plan Discharge Clinical Impression: Dizziness, HTN (hypertension), Mental disability Patient Disposition: Home, Self-Care Instructions: Hypertension (ED) Prescriptions: No Action clonidine HCl 0.1 mg Tablet 0.1 mg PO BEDTIME 0RF cholecalciferol (vitamin D3) [Vitamin D3] 50 mcg (2,000 unit) Capsule 50 mcg PO DAILY 0RF valsartan-hydrochlorothiazide 160-25 mg tablet 1 tab PO DAILY 0RF amlodipine 10 mg tablet 10 mg PO DAILY 0RF atorvastatin 10 mg tablet 10 mg PO DAILY 0RF valproic acid 250 mg capsule 250 mg PO Q12H 0RF ketoconazole 2 % shampoo topical DIRECTED 0RF omeprazole 20 mg capsule,delayed release(DR/EC) 20 mg PO BID Qty: 180 3RF Rx Instructions: Candace 1 capsula media hora antes del desayuno y media hora antes de la wisam Referrals: Bharti Mauro [Primary Care Provider] - 3 days
--- NOTE | 2021-10-30 04:03 | ECG_ITS ---
Test Reason : dizzy Blood Pressure : / mmHG Vent. Rate : 078 BPM Atrial Rate : 078 BPM P-R Int : 134 ms QRS Dur : 088 ms QT Int : 368 ms P-R-T Axes : 047 -48 030 degrees QTc Int : 419 ms Normal sinus rhythm Left anterior fascicular block Moderate voltage criteria for LVH, may be normal variant ( R in aVL , [place] product ) Abnormal ECG When compared with ECG of 16-JUN-2020 16:59, No significant change was found Referred By: Caesar Holguin Electronically Signed By:DUNCAN DAVID
== END 2021-10-30 05:39 | disposition home or self-care (01) ==
PROVIDERS: Emergency Provider Emergency Medicine; PCP Nurse Practitioner
DX: R42 Dizziness and giddiness (principal); I10 Essential (primary) hypertension; M25.551 Pain in right hip; Z79.899 Other long term (current) drug therapy
CPT/HCPCS: 36415; 70450; 73502; 80053; 82947; 85027; 93005; 99284

== ENCOUNTER 2022-03-29 10:39 | Outpatient (REF) | payer MEDICARE, MEDICAID, SELFPAY ==
--- NOTE | ~2022-03-29 | XR_ITS ---
EXAMINATION: XR KNEE, RIGHT CLINICAL INFORMATION: Pain COMPARISON: Previous x-ray 2012 TECHNIQUE: Three views of the right knee. FINDINGS: Bone alignment is normal. No fracture or dislocation is seen. There is arthritis at the patellofemoral and femoral tibial joints with joint space narrowing and osteophyte formation. There is an osteophyte at the patellar tendon origin. There is no joint effusion. XR/XR knee RT 3V IMPRESSION: Arthritis.
== END 2022-03-29 10:40 | disposition home or self-care (01) ==
LOC: HO.XRAY 10:39
PROVIDERS: PCP Registered Nurse; Visit Provider Nurse Practitioner Family
DX: M25.561 Pain in right knee (principal)
CPT/HCPCS: 73562

== ENCOUNTER 2022-05-02 08:04 | Outpatient (REF) | payer MEDICARE, MEDICAID, SELFPAY ==
--- NOTE | ~2022-05-02 | XR_ITS ---
EXAMINATION: XR KNEE AP STANDING CLINICAL INFORMATION: Pain COMPARISON: Previous right knee x-ray March 2022 and left knee x-ray from 2018 TECHNIQUE: AP bilateral standing view of the knees was obtained. FINDINGS: Bone alignment is normal. No fracture or dislocation is seen. There is arthritis at both medial femoral tibial joints with small osteophytes. Soft tissues are unremarkable. XR/XR knee standing BI IMPRESSION: Bilateral medial femoral tibial joint arthritis.
== END 2022-05-02 08:05 | disposition home or self-care (01) ==
LOC: HO.HOSX 08:04
PROVIDERS: Visit Provider Physician Assistant
DX: M25.562 Pain in left knee (principal); M17.11 Unilateral primary osteoarthritis, right knee
CPT/HCPCS: 73565; 99202

== ENCOUNTER → 2022-05-27 15:13 | Outpatient (BNVA) | payer MEDICARE, MEDICAID, SELFPAY | PROVIDERS: PCP Registered Nurse; Visit Provider Nurse Practitioner Family | DX: K21.9 Gastro-esophageal reflux disease without esophagitis (principal); R14.0 Abdominal distension (gaseous) | CPT/HCPCS: 99212 ==

== ENCOUNTER → 2022-11-05 15:02 | Outpatient (BNVA) | payer MEDICARE, MEDICAID, SELFPAY | PROVIDERS: PCP Registered Nurse; Referring Provider Registered Nurse; Visit Provider Nurse Practitioner Family | DX: K21.9 Gastro-esophageal reflux disease without esophagitis (principal); R14.0 Abdominal distension (gaseous) | CPT/HCPCS: 99212 ==

== ENCOUNTER 2023-07-05 09:39 | Outpatient (REF) | payer MEDICARE, MEDICAID, SELFPAY ==
[2023-07-05 10:50] LABS: Hemoglobin 14.5 g/dl (14.0-18.0); Mean Corpuscular HGB Conc 34.5 g/dl (31.0-36.0); Mean Corpuscular Hemoglobin 31.1 pg (27.0-33.0); Mean Corpuscular Volume 90.1 fL (80.0-98.0); Mean Platelet Volume 9.3 fL (9.4-12.4); Platelet Count 331 X10*3/uL (160-400); Red Blood Count 4.66 X10*6/uL (4.60-5.80); Red Cell Distribution Width 12.1 % (11.0-16.0); White Blood Count 7.1 X10*3/uL (4.8-10.8)
[2023-07-05 11:00] LABS: Estimated Average Glucose 114 mg/dL; Hemoglobin A1c % 5.6 % (<6.0)
[2023-07-05 11:17] LABS: Valproate < 12.5 mcg/mL (50.0-100.0)
[2023-07-05 11:20] LABS: Alanine Aminotransferase 14 U/L (0-40); Albumin Level 4.4 g/dL (3.5-5.0); Alkaline Phosphatase 58 U/L (39-117); Anion Gap 13 (12-20); Aspartate Amino Transferase 16 U/L (5-37); Bilirubin Total 0.5 mg/dL (0.0-1.0); Blood Urea Nitrogen 21 mg/dL (9-16); Calcium 9.3 mg/dL (8.4-10.2); Carbon Dioxide 29 mmol/L (22-29); Chloride 101 mmol/L (96-108); Cholesterol 223 mg/dL (<200); Estimated Glomerular Filt Rate > 60; Glucose Random 97 mg/dL (60-115); HDL Cholesterol 39 mg/dL (>40); LDL Cholesterol Calculated 155 mg/dL (<100); Potassium 3.7 mmol/L (3.3-5.1); Sodium 139 mmol/L (135-145); Total Protein 7.2 g/dL (6.5-8.0); Triglycerides 146 mg/dL (<150)
[2023-07-05 11:39] LABS: TSH reflex Free T4 0.99 uIU/mL (0.32-4.0)
[2023-07-05 11:48] LABS: Folate 12.9 ng/mL (> or = 4.0); Vitamin B12 357 pg/mL (200-900)
[2023-07-05 15:09] LABS: CT PCR NOT DETECTED (Not Detect.); NG PCR NOT DETECTED (Not Detect.)
[2023-07-06 08:54] LABS: Syphilis Screen Nonreactive (Nonreactive)
[2023-07-06 09:02] LABS: HBS Num1 2.09 mIU/mL (0-7.99); HBc Num1 0.06 S/CO (0.00-0.79); HIV AB/AG Nonreactive (Nonreactive); HIV Num 1 0.07 S/CO (0.00-0.99); Hepatitis B Core Antibody Nonreactive (Nonreactive); ~HepC Num1 0.08 S/CO (0.00-0.79); ~Hepatitis B Surface Antibody NONREACTIVE (Nonreactive); ~Hepatitis C Antibody Nonreactive (Nonreactive)
== END 2023-07-05 09:40 | disposition home or self-care (01) ==
LOC: HO.LAB 09:39
PROVIDERS: Visit Provider Student in an Organized Health Care Education/Training Program
DX: Z00.00 Encounter for general adult medical examination without abnormal findings (principal); Z11.59 Encounter for screening for other viral diseases; E56.9 Vitamin deficiency, unspecified; Z20.2 Contact with and (suspected) exposure to infections with a predominantly sexual mode of transmission; Z72.89 Other problems related to lifestyle; E78.5 Hyperlipidemia, unspecified; R73.01 Impaired fasting glucose; Z13.29 Encounter for screening for other suspected endocrine disorder
CPT/HCPCS: 0353U; 80053; 80061; 80164; 82607; 82746; 83036; 84443; 85027; 86704; 86706; 86780; 86803; 87389

== ENCOUNTER 2024-02-11 12:53 | Outpatient (AMB) | payer MEDICARE, MEDICAID, SELFPAY ==
--- NOTE | 2024-02-11 12:59 | A.OFFVIS_ITS ---
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 Accounts Receivable Bookkeeper Required: Yes Accounts Receivable Bookkeeper Services: Accounts Receivable Bookkeeper Present Accounts Receivable Bookkeeper Name: [id number]/[email or web address]/sinhala Radiologic Electronic Specialist: Radiologic Electronic Specialist Present Accompanied by: Sister Allergies No Known Allergies Allergy (Verified 11/05/22 15:47) Medication List - Last Reconciled 02/11/24 by Dillan Mosquera MD amlodipine 10 mg PO DAILY atorvastatin 20 mg PO DAILY cholecalciferol (vitamin D3) (Vitamin D3) 50 mcg PO DAILY clonidine HCl 0.1 mg PO BEDTIME ketoconazole 2% topical DIRECTED omeprazole 20 mg PO DAILY polyethylene glycol 3350 (Miralax) 17 grams PO DAILY valsartan-hydrochlorothiazide 160-25 mg 1 tab PO DAILY HPI Comments Details: Is ramike is here for cardiac evaluation. He has intellectual disability and does not give any history. Sister is accompanying him. Discussed using concrete finishing machine operator. Apparently EKG was thought to be abnormal and hence he is referred here. Patient still does not have any clear cardiac history. Some random symptoms but nothing clearly exertional or truly cardiac sounding. However, difficult to evaluate because of his mental health issues. [facility] Medical History Dysphagia Vitamin D deficiency Hx of seizure disorder Hyperlipidemia Kinetic tremor Anxiety Prediabetes Mental disability HTN (hypertension) Surgical History Hx of esophagogastroduodenoscopy Hx of colonoscopy Hx of hernia repair Family History Mother Stomach cancer Chronic heart failure Social History Alcohol intake: never Patient Tobacco Use Status: Never used Tobacco Current occupational status: disabled Current occupation: left hand Review of Systems Const Denies chills, Denies daytime sleepiness, Denies fatigue, Denies fever(s), Denies poor appetite, Denies snoring, Denies stops breathing during sleep, Denies weakness, Denies weight gain and Denies weight loss Eyes Denies loss of vision ENT Denies dizziness and Reports hearing loss Card Denies chest pain, Denies irregular heart rhythm, Denies claudication, Denies leg edema, Denies lightheadedness, Denies palpitations, Denies dyspnea on exertion and Denies orthopnea Resp Denies cough, Denies excessive phlegm production, Denies dyspnea on exertion, Denies snoring and Denies wheezing GI Denies abdominal pain, Denies hematochezia, Denies change in bowel habits, Denies nausea and Denies vomiting Denies dysuria and Denies urinary frequency Musc Denies arthralgias, Denies muscle weakness, Denies numbness and Denies other Skin/Breast Denies nail changes and Denies rash Neuro Denies Abnormal speech present, Denies dizziness, Denies loss of vision, Denies memory loss, Denies numbness and Denies weakness Psych Denies depression and Denies memory loss Endo Denies fatigue and Denies palpitations Aries/Lymph Denies easy bruising Aller/Immun Denies wheezing Physical Exam Vital Signs: Last Vital Signs Pulse 61 02/11/24 13:02 BP 128/72 02/11/24 13:02 BMI result Body Mass Index 25.4 Const General: comfortable and no acute distress HEENT Other: Unremarkable Head: Yes normal to inspection Neck Neck: Yes normal visual inspection Chest Chest palpation & inspection: normal inspection of the chest Resp Auscultation: clear to auscultation bilaterally Cardio Palpation: normal PMI Heart sounds: S1 normal heart sound present, S2 normal heart sound present, no gallops, Murmur heart sound present systolic I/ and no rubs GI Palpation (GI): Soft to palpation Back/Spine/Pelvis Other: unremarkable Skin General skin exam: no rashes or lesions noted Neuro Speech: No Abnormal speech present Extrem General: Yes normal to inspection Psych Mental Status: mental status grossly abnormal Office Procedures EKG Details: EKG with sinus rhythm at 61/Min; leftward axis; no significant ST-T changes and otherwise unremarkable. [id number], Complete Assessment & Plan Assessment & Plan (1) LVH (left ventricular hypertrophy): Code(s): I51.7 - Cardiomegaly Category: Medical Plan In the EKG from PCP, underlying rhythm is sinus with LVH than LAFB. Other EKGs in our system are also similar. Overall, suspect EKG findings could be related to his underlying hypertension leading to LVH. No overt symptoms but difficult to evaluate patient because of intellectual disability. We can do an echocardiogram for any structural findings. If anything significant, then can plan care accordingly. Orders: Orders CA echo transthoracic complete Today I51.7 - Cardiomegaly Coding Level of Care Code New Pt Level 3 (30668) Diagnoses LVH (left ventricular hypertrophy) I51.7 CPT Codes EKG - CPT: 47472-[id number], Complete ([id number])
[2024-02-11 13:02] VITALS: BP 128/72; PULSE 61; BMI 25.4
== END 2024-02-11 13:24 | disposition home or self-care (01) ==
PROVIDERS: PCP Registered Nurse; Visit Provider Internal Medicine
DX: I51.7 Cardiomegaly (principal)
CPT/HCPCS: 93010; 99213

== ENCOUNTER → 2024-02-11 12:53 | Outpatient (BNVA) | payer MEDICARE, MEDICAID, SELFPAY | PROVIDERS: PCP Registered Nurse; Visit Provider Internal Medicine | DX: I51.7 Cardiomegaly (principal) | CPT/HCPCS: 93005; 99212 ==

== ENCOUNTER → 2024-02-25 14:44 | Outpatient (REF) | payer MEDICARE, MEDICAID, SELFPAY ==
--- NOTE | 2024-02-25 14:47 | CA_ITS ---
Transthoracic Echocardiogram Patient (Last, First, Middle): Shan Zapata, Gender: Male Date of : 1970 Age: 54 Procedure Date: 02/25/2024 Procedure Type: Transthoracic Echocardiogram Location: OP Height: 160.02 cm Weight: 63.5 kg BSA: 1.66 m2 Heart Rate: bpm BP: 142 / 86 mmHg Commercial Lines Underwriter: COLIN Referring MD: Dillan Mosquera MD Symptoms: I51.7 - Cardiomegaly Study Quality: Adequate ECG Rhythm: Sinus Conclusions: - The left ventricular systolic function is normal. The calculated ejection fraction is 64% by biplane method. - No obvious valvular pathology seen on this study. Findings Left Ventricle Normal left ventricular cavity size. There is normal left ventricular wall thickness. The left ventricular systolic function is normal. The calculated ejection fraction is 64% by biplane method. There is no evidence of regional wall motion abnormalities. Diastolic function is normal for age. LV peak GLS -21.2%. Right Ventricle Normal right ventricular cavity size and systolic function. Atria Both atria are normal in size. Aortic Valve There is a normal trileaflet aortic valve. There is no aortic valve stenosis. There is trace (trivial) aortic valve regurgitation. Mitral Valve The mitral valve appears normal. There is mild mitral valve regurgitation. There is no mitral valve stenosis. Pulmonic Valve The pulmonic valve is likely normal. Tricuspid Valve There is trace tricuspid valve regurgitation. There is no evidence of pulmonary hypertension. Great Vessels The asc aorta is normal in size. Venous The inferior vena cava is normal in size and collapses less than 50% with inspiration. Pericardium/Pleural There is a trivial pericardial effusion. Prior Study Comparison No prior study available for comparison. Recommendations, Care & Conclusions No obvious valvular pathology seen on this study. Measurements 2D Linear Measurements IVSd: 0.85 0.6-0.9/0.6-1.0 cm LVIDd: 4.88 3.9-5.3/4.2-5.9 cm LVIDd Index: 2.94 2.4-3.2/2.2-3.1 cm/m2 LVIDs: 3.20 2.0-3.6 cm LVPWd: 0.91 0.7-1.1 cm LA Diam: 3.00 2.7-3.8/3.0-4.0 cm LAIDs Index: 1.81 1.5-2.3 cm/m2 LV Mass: 183.05 67-162/88-224 g LV Mass Index: 110.27 43-95/49-115 g/m2 LVOT Diam: 1.90 3.0+(-)1.3 cm 2D Systolic Function EF 4C: 63.70 >55% EF 2C: 64.10 >55% EF BiP: 63.70 >55% Mitral Valve MV Pk E: 0.97 MV PK A: 0.57 MV Decel Time: 268.00 E/A: 1.70 E'Lateral: 10.20 E'Medial: 9.57 E/E' Med: 10.10 E/E' Lat: 9.50 PHT: 78.00 MVA PHT: 2.82 Decel [place]: 3.62 Aortic Valve AoV Pk Cory: 2.25 AoV Mn Cory: 1.31 AoV VTI: 0.41 AoV Pk Grad: 20.00 Aov Mn Grad: 8.00 DEAMRIO Cont.VTI: 2.06 LVOT LVOT Pk Cory: 1.71 LVOT Mn Cory: 1.02 LVOT VTI: 0.30 LVOT Pk Grad: 12.00 LVOT Mn Grad: 5.00 LVOT Diam: 1.90 LVOT Area: 2.84 Diastolic Function MV Pk E: 0.97 MV Pk A: 0.57 E/A: 1.70 E'Medial: 9.57 E/E' Med: 10.10 E' Laterial: 10.20 E/E' Lat: 9.50 Right Ventricle TAPSE (mm): 30.30 TVS' Cory: 18.20 Tricuspid Valve TR Pk Cory: 2.36 TR Pk Grad: 22.00 RA Press: 8.00 RVSP: 30.00 Great Vessels Aorta Sinus of Valsalva: 3.23 2.0-3.[address] [place]: 2.55 1.7-3.4 cm Ao Asc: 3.30 2.1-3.4 cm Updated in Other Vendor System with Status of Final Dillan Mosquera MD electronically signed on 02/27/2024 10:06:35 AM with status of Final
== END ==
LOC: HO.CARD 14:44
PROVIDERS: PCP Student in an Organized Health Care Education/Training Program; Visit Provider Internal Medicine
DX: I51.7 Cardiomegaly (principal)
CPT/HCPCS: 93306; 93356

== ENCOUNTER → 2024-02-25 14:47 | Outpatient (BNV) | payer MEDICARE, MEDICAID, SELFPAY | PROVIDERS: PCP Student in an Organized Health Care Education/Training Program; Visit Provider Internal Medicine | DX: I34.0 Nonrheumatic mitral (valve) insufficiency (principal) | CPT/HCPCS: 93306; 93356 ==

== ENCOUNTER 2024-03-19 08:35 | Outpatient (REF) | payer MEDICARE, MEDICAID, SELFPAY ==
[2024-03-19 10:07] LABS: Alanine Aminotransferase 17 U/L (0-40); Albumin Level 4.4 g/dL (3.5-5.0); Alkaline Phosphatase 71 U/L (39-117); Anion Gap 13 (12-20); Aspartate Amino Transferase 17 U/L (5-37); Bilirubin Total 0.7 mg/dL (0.0-1.0); Blood Urea Nitrogen 17 mg/dL (9-16); Calcium 9.8 mg/dL (8.4-10.2); Carbon Dioxide 31 mmol/L (22-29); Chloride 101 mmol/L (96-108); Cholesterol 202 mg/dL (<200); Estimated Glomerular Filt Rate > 60; Glucose Random 99 mg/dL (60-115); HDL Cholesterol 38 mg/dL (>40); LDL Cholesterol Calculated 114 mg/dL (<100); Potassium 3.7 mmol/L (3.3-5.1); Sodium 141 mmol/L (135-145); Total Protein 7.4 g/dL (6.5-8.0); Triglycerides 250 mg/dL (<150)
[2024-03-19 10:10] LABS: Valproate < 12.5 mcg/mL (50.0-100.0)
[2024-03-19 10:26] LABS: Hepatitis B Surface Antigen Negative (Negative)
== END 2024-03-19 08:36 | disposition home or self-care (01) ==
LOC: HO.LAB 08:35
PROVIDERS: PCP Student in an Organized Health Care Education/Training Program; Visit Provider Student in an Organized Health Care Education/Training Program
DX: E78.5 Hyperlipidemia, unspecified (principal); Z11.59 Encounter for screening for other viral diseases; Z86.69 Personal history of other diseases of the nervous system and sense organs
CPT/HCPCS: 36415; 80053; 80061; 80164; 87340

== ENCOUNTER 2024-11-13 07:10 | Outpatient (REF) | payer MEDICARE, MEDICAID, SELFPAY ==
--- OUTSIDE RECORDS SUMMARY | 2024-11-13 07:13 | XMS_ITS | Encounter Summary ---
Author Organization [employer] Address [address] [facility] [address] [place] [address] Care Team Providers Care Sugar Chipper Machine Operator Name Role Phone Elizabeth Sparks MD Primary Care Pro vider Encounter Details Date Type Department Care Team (Late st Contact Info) Description 04/18/2023 Orders Only [facility] [address] [place] [address] Kimmie Do LPN Social History Tobacco Use Types Packs/Day Years Used Date Smoking Tobacco: Never Passive Smoke Exposure: Never Smokeless Tobacco: Never Sex and Gender Information Value Date Recorded Sex Assigned at Male 06/03/2022 10:14 AM EDT Legal Sex Male 10:14 AM EDT Gender Identity Male 06/03/2022 10:14 AM EDT Sexual Orientation Straight 06/03/2022 10 :14 AM EDT documented as of this encounter Plan of Treatment Not on file documented as of this encounter Visit Diagnoses Not on filedocumented in this encounter Care Teams Sugar Chipper Machine Operator Relationship Specialty Start Date End Date Elizabeth Sparks MD [address] [place] [address] PCP - General Internal Medicine 04/14/23 documented as of this encounter
--- OUTSIDE RECORDS SUMMARY | 2024-11-13 07:13 | XMS_ITS | Encounter Summary ---
Author Organization [employer] Address [address] [facility] [address] [place] [address] Care Team Providers Care Sound Cutter Name Role Phone Elizabeth Sparks MD Primary Care Pro vider Encounter Details Date Type Department Care Team (Late st Contact Info) Description 12/15/2023 Telephone [facility] [address] [place] [address] Elizabeth Sparks MD [address] [place] [address] Social History Tobacco Use Types Packs/Day Years Used Date Smoking Tobacco: Never Passive Smoke Exposure: Never Smokeless Tobacco: Never Alcohol Use Standard Drinks/Week Comments Never 0 (1 standard drink = 0.6 oz pur e alcohol) Depression Answer Date Recorded Patient Health Questionnaire-9 Score 3 06/30/2023 Patient Health Questionnaire-9 Score 3 06/30/2023 Last PHQ-9: Questionnaire Data Not on file 1 08/30/2022 Housing Stability Answer Date Recorded What is your housing situation today? I have roya montes 10/30/[address] you li ve. Do you have problems with any of the following? None of the above 10/30/2023 Food Insecurity Answer Date Recorded Within the past 12 months, y ou worried that your food would run out before you got money to buy more: Never True 10/30/2023 Within the past 12 months,th e food you bought just didn't last and you didn't have enough money to get more: Never True Transportation Answer Date Recorded In the past 12 months, has l ack of transportation kept you from medical appts, meetings, work or from getting things needed for daily living? No 10/30/2023 Utilities Answer Date Recorded In the past 12 months, has t he electric, gas, oil or water company threatened to shut off services in your home? No 10/30/2023 Depression Answer Date Recorded Patient Health Questionnaire-2 Score 0 06/30/2023 Sex and Gender Information Value Date Recorded Sex Assigned at Male 06/03/2022 10:14 AM EDT Legal Sex Male 10:14 AM EDT Gender Identity Male 06/03/2022 10:14 AM EDT Sexual Orientation Straight 06/03/2022 10 :14 AM EDT documented as of this encounter Plan of Treatment Not on file documented as of this encounter Visit Diagnoses Not on filedocumented in this encounter Additional Health Concerns Assessment Noted Time PHQ-9 Depression Total Score: 3 06/30/20 2:15 PM EST documented as of this encounter Care Teams Sound Cutter Relationship Specialty Start Date End Date Elizabeth Sparks MD [address] [place] [id number] PCP - General Internal Medicine 04/14/23 documented as of this encounter
--- OUTSIDE RECORDS SUMMARY | 2024-11-13 07:13 | XMS_ITS | Clinical Summary ---
Author Organization [facility] it[facility] Address [address] [place] [address] Care Team Providers Care Senior Reactor Operator Name Role Phone Unavailable Primary Care Provider Unavailabl e Social History Tobacco Use Types Packs/Day Years Used Date Smoking Tobacco: Never Assessed Sex and Gender Information Value Date Recorded Sex Assigned at Not on file Legal Sex Male 5:07 PM EST Gender Identity Not on file Sexual Orientation Not on file Last Filed Vital Signs Vital Sign Reading Time Taken Comments Blood Pressure - - Pulse - - Temperature - - Respiratory Rate - - Oxygen Saturation - - Inhaled Oxygen Concentration - - Weight 67.1 kg (148 lb) 03/16/2024 11:06 AM EDT Height 160 cm (5' 3 ) 03/16/2024 11:06 AM EDT Body Mass Index 26.22 03/16/2024 11:06 AM EDT Plan of Treatment Health Maintenance Due Date Last Done Comments DTaP,Tdap,and Td Vaccines (1 - Tdap) 1990 Hepatitis B Vaccines (1 of 3 - 19+ 3-dose series) 1990 Pneumococcal Vaccine: 50+ Ye ars (1 of 1 - PCV) 2021 Zoster Vaccines (1 of 2) 2021 COVID-19 Vaccine ( - 2023-2 5 season) 2024 Cholesterol Screening (Lipid Panel) 05/11/2024 Colorectal Cancer Screening: Colonoscopy 05/11/2024 Depression Screening 05/11/2024 HIV Screening 05/11/2024 Hepatitis C Screening 05/11/2024 Social Influencers of Health Screening 05/11/2024 Influenza Vaccine (Season Ended) 2025 HIB Vaccines Aged Out No longer eligi ble based on patient's age to complete this topic HPV Vaccines Aged Out No longer eligi ble based on patient's age to complete this topic Hepatitis A Vaccines Aged Out No long er eligible based on patient's age to complete this topic IPV Vaccines Aged Out No longer eligi ble based on patient's age to complete this topic MMR Vaccines Aged Out No longer eligi ble based on patient's age to complete this topic Meningococcal ACWY Vaccine Aged Out N o longer eligible based on patient's age to complete this topic Meningococcal B Vaccine Aged Out No l onger eligible based on patient's age to complete this topic Pneumococcal Vaccine: Pediat rics (0 to 5 Years) and At-Risk Patients (6 to 64 Years) Aged Out No longer eligible b ased on patient's age to complete this topic RSV Immunization Patients Un anya 20 months Aged Out No longer eligible b ased on patient's age to complete this topic Varicella Vaccines Aged Out No longer eligible based on patient's age to complete this topic
--- OUTSIDE RECORDS SUMMARY | 2024-11-13 07:13 | XMS_ITS | Encounter Summary ---
Author Organization [employer] Address [address] [facility] [address] [place] [address] Care Team Providers Care Press Assistant Name Role Phone Elizabeth Sparks MD Primary Care Pro vider Encounter Details Date Type Department Care Team (Latest Contact Info) Description 11/10/2024 Travel Social History Tobacco Use Types Packs/Day Years Used Date Smoking Tobacco: Never Passive Smoke Exposure: Never Smokeless Tobacco: Never Alcohol Use Standard Drinks/Week Comments Never 0 (1 standard drink = 0.6 oz pur e alcohol) Depression Answer Date Recorded Patient Health Questionnaire-9 Score 0 11/10/2024 Patient Health Questionnaire-9 Score 0 11/10/2024 Last PHQ-9: Questionnaire Data Not on file 0 11/10/2024 Housing Stability Answer Date Recorded What is [...] Date Recorded Patient Health Questionnaire-2 Score 0 11/10/2024 Internet Access Answer Date Recorded Internet Access Q1 Yes 10/29/2024 Internet Access Q2 Not on file 10/29/2024 Sex and Gender Information Value Date Recorded [...] Assessment Noted Time PHQ-9 Depression Total Score: 0 11/11/19 25 2:28 PM EDT documented as of this encounter Care Teams Press Assistant Relationship Specialty Start Date End Date Elizabeth Sparks MD [address] [place] [id number] PCP - General Internal Medicine 04/14/23 documented as of this encounter
--- OUTSIDE RECORDS SUMMARY | 2024-11-13 07:13 | XMS_ITS | Encounter Summary ---
Author Organization [employer] Address [address] [facility] 7[address] [place] [address] Care Team Providers Care Marble Supervisor Name Role Phone Elizabeth Sparks MD Primary Care Pro vider Reason for Referral * Consultation (Routine) - Authorized Specialty Diagnoses / Procedures Referred By Connie lopez Referred To Contact Psychology Diagnoses Intellectual disability Elizabeth Sparks MD [address] [place] [address] Phone: tel: fax: Referral ID Status Reason Start Date Expiration Date Visits Requested Visits Authorized [id number] Authorized Specialty Services Required 11/10/2024 11/10/2025 1 1 * Consultation (Routine) - Closed Specialty Diagnoses / Procedures Referred By Connie lopez Referred To Contact Gastroenterology Diagnoses Gastric intestinal metaplasia Elizabeth Sparks MD [address] [place] [address] Phone: tel: fax: [facility] Referral ID Status Reason Start Date Expiration Date V isits Requested Visits Authorized [id number] Closed Specialty Services Required 11/10/2024 11/10/2025 1 1 Encounter Details Date Type Department Care Team (Late st Contact Info) Description 11/10/2024 2:15 PM EDT Office Visit [facility] [address] [place] [address] Elizabeth Sparks MD [address] [place] [address] Gastric intestinal metaplasia (Primary Dx); Health care maintenance; Hypertension, unspecified type; Subependymal villalta matter heterotopia (CMS/HCC); Seizures (CMS/HCC); Essential (primary) hypertension; Intellectual disability Social History Tobacco Use Types Packs/Day Years [...] AM EDT documented as of this encounter Last Filed Vital Signs Vital Sign Reading Time Taken Comments Blood Pressure 130/80 11/10/2024 2:25 PM EDT Pulse 64 11/10/2024 2:25 PM EDT Temperature 36.3 ??C (97.4 ??F) 11/10/2024 2:23 PM ED T Respiratory Rate 20 11/10/2024 2:23 PM EDT Oxygen Saturation 98% 11/10/2024 2:23 PM EDT Inhaled Oxygen Concentration - - Weight 66.6 kg (146 lb 12.8 oz) 11/10/2024 2:23 PM EDT Height 167.1 cm (5' 5.8 ) 11/10/2024 2:23 PM EDT Body Mass Index 23.84 11/10/2024 2:23 PM EDT documented in this encounter Progress Notes * Elizabeth Craig MD - 11/10/2024 2:15 PM EDT Subjective Patient ID: Shan Zapata is a 54 y.o. male who presents for follow-up appointment. 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 Patient denies any complaints, states to be compliant with all his medications Sister states any letter for neuropsychology appointment ----- Assessment and Plan: Health care maintenance -Annual exam done 06/2024 -colonoscopy 10/2021: 3-4 mm polyp s/p bx : hyperplastic,mild to moderate diverticulosis ,moderate internal hemorrhoids. 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 -referred to neuropsychology for evaluation of cognitive impairment---referred again today given patient never received referral letter. 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 Jimenez. -EKG for baseline 10/2023 NSR, HR 64, QTc 421, marled left axis deviation consistent w LAFB -continue amlodipine 10 mg daily,valsartan/HDCTZ 160/25 mg -microalb ordered today HLD -03/19/2024 hep B surf ag neg , Chem CO2 31,rest wnl, trig 250, total ch 202, LDL 114, HDL 38 1<---- LDL 155, total ch 223, trig 146, HDL 39 -ASCVD 7.9 % rec for stains -continue atorvastatin 40 mg daily -taking consistently now -repeat chem,lipids in fasting --- will inform patient of result Hx of gastric focal metaplasia Hx of H pylori s/p tx by GI w neg EGD bx for H. Pylori after tx -EGD 10/2021 : 3-4 mm gastric polyp s/p bx,mild gastric erythema. Bx result : mod chronic inactive inflammation and focal intestinal metaplasia Denies GI symptoms -pt f w GI -probable will need to repeat EGD in 3 y from last one-referred back today to GI at [facility] [place]sister thinks needs another referral given not following for some time LAFB -EKG 10/2023 NSR, HR 64, QTc 421, marled left axis deviation consistent w LAFB -cards 02/2024 -Seen and referred for TTE and plan for further testing if needed w echo result -TTE 02/2024 EF 64% , No valvular pathology Review of Systems Constitutional: Negative. Respiratory: Negative. Cardiovascular: Negative. Gastrointestinal: Negative. Genitourinary: Negative. Objective BP 130/80 (BP Location: Right arm, Patient Position: Sitting, BP Cuff Size: Adult) Pulse 64 Temp 97.4 ??F (36.3 ??C) (Temporal) Resp 20 Ht 5' 5.8 (1.671 m) Wt 146 lb 12.8 oz (66.6 kg) SpO2 98% BMI 23.84 kg/m?? Rechecked manually 130/80 Physical Exam Constitutional: General: He is not in acute distress. Appearance: Normal appearance. Neurological: Mental Status: He is alert. Assessment/Plan Problem List Items Addressed This Visit Hypertension Relevant Orders Albumin, Random Urine W/Creatinine Intellectual disability Relevant Orders Referral to Neuropsychology Subependymal villalta matter heterotopia (CMS/HCC) Health care maintenance Relevant Orders Comprehensive Metabolic Panel Lipid Panel, Standard Gastric intestinal metaplasia - Primary Relevant Orders Referral to Gastroenterology Seizures (CMS/HCC) Other Visit Diagnoses Essential (primary) hypertension Relevant Medications amLODIPine (Norvasc) 10 MG tablet valsartan-hydroCHLOROthiazide (Diovan-HCT) 160-25 MG tablet documented in this encounter Plan of Treatment Scheduled Orders Name Type Priority Associated Diagnoses Orde r Schedule Comprehensive Metabolic Panel Lab Routine Health care maintenance Expected: 11/10/2024 (Approximate), Expires: 11/10/2025 Lipid Panel, Standard Lab Routine Health care maintenance Expected: 11/10/2024 (Approximate), Expires: 11/10/2025 Albumin, Random Urine W/Creatinine Lab Routine Hypertension, unspecified type Expected: 11/10/2024 (Approximate), Expires: 11/10/2025 Scheduled Referrals Name Type Priority Associated Diagnoses Order Schedule Referral to Gastroenterology Outpatient Referral Routine Gastric intestinal metaplasia Expected: 11/10/2024 (Approximate), Expires: 11/10/2025 Referral to Neuropsychology Outpatient Referral Routine Intellectual disability Expected: 11/10/2024 (Approximate), Expires: 11/10/2025 documented as of this encounter Visit Diagnoses Diagnosis Gastric intestinal metaplasia- Primary Health care maintenance Hypertension, unspecified type Subependymal villalta matter heterotopia (CMS/HCC) Seizures (CMS/HCC) Other convulsions Essential (primary) hypertension Unspecified essential hypertension Intellectual disability Unspecified mental retardation documented in this encounter Additional Health Concerns Assessment Noted Time PHQ-9 Depression Total Score: 0 11/11/19 25 2:28 PM EDT documented as of this encounter Care Teams Marble Supervisor Relationship Specialty Start Date End Date Elizabeth Sparks MD [address] [place] [id number] PCP - General Internal Medicine 04/14/23 documented as of this encounter
--- OUTSIDE RECORDS SUMMARY | 2024-11-13 07:13 | XMS_ITS | Clinical Summary ---
Author Organization [employer] Address [address] [facility] [address] [place] [address] Care Team Providers Care Oracle Fusion Middleware Developer Name Role Phone Elizabeth Sparks MD Primary Care Pro vider Allergies No known active allergies Medications * This document contains information received from the source organization and may not represent a complete record from that organization. hydrOXYzine HCl (Atarax) 10 MG tablet Take 1 tablet (10 mg) by mouth every 8 (eight) hours if needed for itching or anxiety for up to 10 days. 20 tablet 12/15/19 24 Active [facility] Ear Drops 6.5 % otic solution ADMINISTER 5 TO 10 DROPS INTO AFFECTED EAR(S) 2 TIMES DAILY FOR 4 DAYS 30 mL 06/17/20 24 Active Clear Eyes Natural Tears 5-6 MG/ML solution ADMINISTER 1 DROP INTO AFFECTED EYE(S) EVERY 6 (SIX) HOURS IF NEEDED (DRY EYE). 15 mL 06/17/20 24 Active cloNIDine (Catapres) 0.1 MG tablet TOME 1 TABLETA POR VIA ORAL TODOS [place] SALAS AL ACOSTARSE CUANDO SEA NECESARIO 90 tablet 10/05/19 25 Active amLODIPine (Norvasc) 10 MG tabletIndicatio ns:Essential (primary) hypertension TOME MIKO TABLETA TODOS [place] SAL[place] 90 tablet 1 11/11/19 25 Active valsartan-hydro CHLOROthiazide (Diovan-HCT) 160-25 MG tabletIndicatio ns:Essential (primary) hypertension TAKE 1 TABLET BY MOUTH EVERY DAY 90 tablet 1 11/11/19 25 Active atorvastatin (Lipitor) 40 MG tablet Take 1 tablet (40 mg) by mouth Once per day. 90 tablet 1 11/11/19 25 026 Active valproic acid (Depakene) 250 MG capsule TOME MIKO CAPSULA DOS VECES AL LORENE 60 capsule 5 11/11/19 25 Active omeprazole (PriLOSEC) [address] capsule Take 1 capsule (20 mg) by mouth before breakfast and before evening meal. Do not crush or chew. 180 capsule 11/11/19 25 025 Active valproic acid (Depakene) 250 MG capsule TOME MIKO CAPSULA DOS VECES AL LORENE 60 capsule 2 01/12/20 24 025 Discontinued(R eorder (will not trigger notification to Pharmacy)) amLODIPine (Norvasc) 10 MG tabletIndicatio ns:Essential (primary) hypertension TOME MIKO TABLETA TODOS [place] 90 tablet 1 04/23/20 24 025 Discontinued(R eorder (will not trigger notification to Pharmacy)) atorvastatin (Lipitor) 40 MG tablet Take 1 tablet (40 mg) by mouth Once per day. 90 tablet 1 04/23/20 24 025 Discontinued(R eorder (will not trigger notification to Pharmacy)) valsartan-hydro CHLOROthiazide (Diovan-HCT) 160-25 MG tabletIndicatio ns:Essential (primary) hypertension TAKE 1 TABLET BY MOUTH EVERY DAY 90 tablet 1 04/23/20 24 025 Discontinued(R eorder (will not trigger notification to Pharmacy)) amLODIPine (Norvasc) 10 MG tabletIndicatio ns:Essential (primary) hypertension TOME MIKO TABLETA TODOS [place] 90 tablet 1 04/23/20 24 025 Discontinued(O ther) valsartan-hydro CHLOROthiazide (Diovan-HCT) 160-25 MG tabletIndicatio ns:Essential (primary) hypertension TAKE 1 TABLET BY MOUTH EVERY DAY 90 tablet 1 04/23/20 24 025 Discontinued(O ther) atorvastatin (Lipitor) 40 MG tablet Take 1 tablet (40 mg) by mouth Once per day. 90 tablet 1 04/23/20 24 025 Discontinued(O ther) omeprazole (PriLOSEC) [address] capsule Take 1 capsule (20 mg) by mouth before breakfast and before evening meal. Do not crush or chew. 180 capsule 04/23/20 24 025 Discontinued(R eorder (will not trigger notification to Pharmacy)) Active Problems Problem Noted Date Diagnosed Date Cognitive developmental delay 07/23/2024 Assessment & Plan (07/23/2024 12:20 PM EST): Pt will attend day program Friday-Friday Sister will serve as health proxy and continue [employer] services Rash 07/23/2024 Assessment & Plan (07/23/2024 12:21 PM EST): No evidence of rash today Pt reports rash has seasonal component Referral to derm per pt request Encounter for immunization 07/23/2024 Left anterior fascicular block (LAFB) 10/31/2023 Assessment & Plan (07/23/2024 12:20 PM EST): Pt will continue to f/u with cards prn Seizures 10/30/2023 Health care maintenance 06/30/2023 Assessment & Plan (07/23/2024 12:13 PM EST): Pt is UTD with healthcare maintenance screenings Offered flu vaccination but pt had it done at other facility, needs to provide record. 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 06/17/2023 Hyperlipidemia 09/05/2014 06/17/2023 Assessment & Plan (07/23/2024 12:07 PM EST): CVD risk 8.3% Lab Results Component Value Date CHOL (H) 03/19/2024 CHOL 223 (H) 07/05/2023 Lab Results Component Value Date HDL 38 (L) 03/19/2024 HDL 39 (L) 07/05/2023 Lab Results Component Value Date TRIG 250 (H) 03/19/2024 TRIG 146 07/05/2023 -continue atorvastatin 40 mg Impaired fasting glucose 10/19/2013 023 Anxiety 05/13/2012 06/17/2023 Assessment & Plan (07/23/2024 12:06 PM EST): Pt denies current anxiety symptoms Previously referred to neuropsychology for evaluation of cognitive impairment --apt for 10/2024 per sister Pt on clonidine HS for anxiety Hypertension 05/13/2012 06/17/2023 Assessment & Plan (07/23/2024 12:09 PM EST): BP at goal <140/90 Continue on amlodipine and Diovan-HCT Intellectual disability 05/13/2012 06/17/20 23 Resolved Problems Problem Noted Date Diagnosed Date Resolved Date Eye hemorrhage, right 01/30/20242023 Diabetes due to undrl condit ion w oth diabetic neuro comp 10/30/2023 03/22/2024 Impacted ear wax 06/30/2023 01/30/2024 Encounters * This document contains information received from the source organization and may not represent a complete record from that organization. Date Type Department Care Team Description 11/10/2024 2:15 PM EDT Office Visit [address] [phone] Elizabeth Sparks MD Gastric intestinal metaplasia (Primary Dx); Health care maintenance; Hypertension, unspecified type; Subependymal villalta matter heterotopia (CMS/HCC); Seizures (CMS/HCC); Essential (primary) hypertension; Intellectual disability 11/10/2024 Travel 11/01/2024 Telephone [facility] [address] [place] [phone] Elizabeth Sparks MD chart prep 10/29/2024 Patient Outreach [facility] [address] [place] [phone] Elizabeth Sparks MD Pre-visit Planning (SDOH Screening negative and Tobacco screening negative) 10/03/2024 Refill [facility] [address] [place] [address] Elizabeth Sparks MD 09/21/2024 Telephone [facility] [address] [place] [address] Rachael Owens, SHIVA Paperwork/Forms from Last 3 Months Immunizations Name Administration Dates Next Due Hep A, Adult 05/13/2012,10/09/2011 Hep B, adult 05/13/2012,11/12/2011,10/09/2011 Influenza injectable quadriv alent IIV4 with preservative 09/11/2017,09/10/2016 Influenza injectable quadriv alent preservative free 06/30/2023,05/06/2021,06/20/2020,2018 Influenza, IIV3, injectable 08/29/2014 Influenza, Split (incl. li fied surface antigen) 04/29/2013,05/13/2012 MMR 05/11/2004 Pfizer Covid-19 Vaccine 12+ 07/21/2024, Pneumococcal Conjugate PCV 20 07/21/2024 TD (adult), 2 Lf tetanus tox oid, preservative free, adsorbed 03/03/2008,01/21/1997 Tdap 10/30/2023,10/19/2013 Zoster, Recombinant 04/02/2021,01/26/2021 Family History Medical History Relation Name Comments Pancreatic cancer Brother Leukemia Father HTN Mother HTN Sister Relation Name Status Comments Brother Father Mother Sister Social History Tobacco Use Types Packs/Day Years [...] your housing situation today? I have roya jyoti 10/30/[address] you li [...] Orientation Straight 06/03/2022 10 :14 AM EDT Last Filed Vital Signs Vital Sign Reading [...] Mass Index 23.84 11/10/2024 2:23 PM EDT Plan of Treatment Health Maintenance Due Date Last Done Comments CT Colonography 1971 FIT DNA/Cologuard 1971 FIT 1971 FOBT 1971 Sigmoidoscopy 1971 Influenza Vaccine (#1) 2024 3, 05/06/2021, 06/20/2020, Additional history exists Diabetes: Hemoglobin A1C 07/31/2024 024, 07/05/2023, 09/15/2020, Additional history exists Lipid Panel 03/19/2025 03/19/2024, 12/0 09/2022, 10/04/2021, Additional history exists SDOH Screening 10/29/2025 10/29/2024 Depression Screening 11/10/2025 11/10/2024, 11/11/19 Tobacco Screening 11/10/2025 11/10/2024 Eye Exam 05/26/2026 05/26/2024, 05/05, 05/26/2024, Additional history exists Colonoscopy 10/03/2031 Colorectal Cancer Screening 10/03/2031 DTaP/Tdap/Td Vaccines (3 - Td or Tdap) 10/29/2033 10/30/2023, 10/19/2013, 03/03/2008, Additional history exists RSV Patients and Patients Aged 60 years or older (1 - 1-dose 75+ series) 2046 Hepatitis A Vaccines Aged Out 05/13/2012, 10/09/19 12 No longer eligible based on patient's age to complete this topic Hepatitis B Vaccines Completed 05/13/2012, 11/12/2011, 10/09/2011 Zoster Vaccines Completed 04/02/2021, 01/26/2021 Diabetes: Foot Exam Discontinued 12/02/2022, 12/02/2022, 12/02/2022, Additional history exists HIV Screening Completed 07/05/2023 Hepatitis C Screening Completed 07/05/2023 COVID-19 Vaccine Completed 07/21/2024, , 07/04/2021, Additional history exists Pneumococcal Vaccine: 50+ Years Completed 07/21/2024 Alcohol/Substance Use Screening Discontinued Diabetes: Urine Protein Screening Discontinued HIB Vaccines Aged Out No longer eligi ble based on patient's age to complete this topic HPV Vaccines Aged Out No longer eligi ble based on patient's age to complete this topic IPV Vaccines Aged Out No longer eligi ble based on patient's age to complete this topic Meningococcal Vaccine Aged Out No taylor jake eligible based on patient's age to complete this topic RSV under 20 months Aged Out No longe r eligible based on patient's age to complete this topic Rotavirus Vaccines Aged Out No longer eligible based on patient's age to complete this topic Procedures Procedure Name Priority Date/Time Associated Diagnosis Comments LIPID PANEL, STANDARD Routine 03/19/2024 8:53 AM EDT Hyperlipidemia, unspecified hyperlipidemia type POCT GLYCOSYLATED HEMOGLOBIN (HGB A1C) Routine 01/30/2024 1:18 PM EDT Diabetes due to undrl condition w oth diabetic neuro comp (CMS/HCC) HEPATITIS C AB W/REFL TO HCV RNA, QN, PCR Routine 07/05/2023 10:06 AM EST Annual physical exam HIV 1/2 ANTIGEN/ANTIBODY, FOURTH GENERATION W/RFL Routine 07/05/2023 10:06 AM EST Annual physical exam from Last 3 Months or Most Recently Relevant to Health Maintenance Results * (ABNORMAL) Lipid Panel, Standard (03/19/2024 8:53 AM EDT) Triglycerides 250(H) <150 mg/dL [facility] Comment:Desirable Triglyceri de: less than 150 mg/dLBorderline High Triglyceride 150-199 mg/dLHigh Triglyceride: 200-499 mg/dLVery High Triglyceride: greater than or equal to 5OO mg/dL Cholesterol 202(H) <200 mg/dL [facility] Comment:Desirable Cholestero l: less than 200 mg/dLBorderline High Cholesterol: 200-239 mg/dLHigh Cholesterol: greater than 239 mg/dL LDL Cholesterol Calculated 114(H) <100 mg/dL [facility] Comment:Desirable LDL: less than 100 mg/dLNear Optimal/Above Optimal LDL: 110- 129 mg/dLBorderline High LDL: 130-159 mg/dLHigh LDL: 160-189 mg/dLVery High LDL: greater than or equal to 190 mg/dL HDL Cholesterol 38(L) >40 mg/dL [facility] Comment:Desirable HDL: great er than 40 mg/dL Note: This HDL assay may give artificially low results in patients with liver disease. Blood Venous blood specimen / Unknown 03/19/2024 8:53 AM EDT 03/19/2024 8:53 AM EDT Elizabeth Craig MD LAB BLOOD ORDERAB LES Final Result Performing Organization Address City/[facility]/ZIP Co de Phone Number [facility] [address] [place] [address] [phone] * POCT glycosylated hemoglobin (Hgb A1c) (01/30/2024 1:18 PM EDT) Hemoglobin A1C 6.0 4.0 - 6.0 % QC Media Lot # [id number] Lot# Expiration Date Blood Capillary blood specimen / Unknown 01/30/2024 1:18 PM EDT Elizabeth Craig MD POINT OF CARE LESLY T ENTER/EDIT ORDERABLES Final Result * Hepatitis C Antibody with Reflex to HCV, RNA, Quantitative, Real-Time PCR (07/05/2023 10:06 AM EST) Hepatitis C Antibody Nonreactive Nonreactive [facility] Comment:Antibodies to HCV no t detected; does not exclude early acuteHCV infection. Blood Venous blood specimen / Unknown 07/05/2023 10:06 AM EST 07/05/2023 10:06 AM EST Elizabeth Craig MD LAB BLOOD ORDERAB LES Final Result [facility] [address] [place] [address] [phone] * HIV-1/2 Antigen and Antibodies, Fourth Generation, with Reflexes (07/05/2023 10:06 AM EST) HIV AB/AG Nonreactive Nonreactive [facility] Comment:HIV-1 p24 Ag and/or HIV-1/HIV-2 Ab not detected.A test result that is nonreactive does not exclude thepossibility of exposure to or infection with HIV-1 and/orHIV-2. Nonreactive results in this assay for individualswith prior exposure to HIV-1 and/or HIV-2 may be due toantigen and antibody levels that are below the limit ofdetection of this assay.The GetfuguniveriCAR HIV Ag/Ab Combo assay result andsupplemental assay results should be interpreted inconjunction with the patient's clinical presentation,history and other laboratory results. If the results areinconsistent with clinical evidence, additional testing issuggested to confirm the result. Blood Venous blood specimen / Unknown 07/05/2023 10:06 AM EST 07/05/2023 10:06 AM EST us Elizabeth Craig MD LAB BLOOD ORDERAB LES Final Result [facility] [address] [place] [address] [phone] from Last 3 Months or Most Recently Relevant to Health Maintenance Insurance MEDICARE [facility] STANDARD Advance Directives Documents on File Type Date Recorded Patient Car Wiper Expl anation Advance Directives and Living Will 01/30/2024 Health Care Proxy 01/30/24 Care Teams Oracle Fusion Middleware Developer Relationship Specialty Start Date End Date Elizabeth Sparks MD [address] [place] [phone] PCP - General Internal Medicine 04/14/23
--- OUTSIDE RECORDS SUMMARY | 2024-11-13 07:13 | XMS_ITS | Clinical Summary ---
Author Organization [facility] Address [address] [place] [address] Care Team Providers Care Substation Supervisor Name Role Phone Unavailable Primary Care Provider Unavailabl e Social History Tobacco Use Types Packs/Day Years Used Date Smoking Tobacco: Never Assessed Sex and Gender Information Value Date Recorded Sex Assigned at Not on file Gender Identity Not on file Sexual Orientation Not on file Plan of Treatment Health Maintenance Due Date Last Done Comments Hepatitis C Virus Screening 1971 HIV Screening 01/02/1984 DTaP/Tdap/Td Vaccines (1 - Tdap) 1990 Hepatitis B Vaccines (1 of 3 - 19+ 3-dose series) 1990 Pneumococcal Vaccines 50+ (1 of 1 - PCV) 2021 Zoster (Shingles) Vaccine (1 of 2) 2021 COVID-19 Vaccine ( - 2023-2 5 season) 2024 Pneumococcal Vaccine: Pediat leland (0-5 Years) and At-Risk Patients (6 to 49 Years) Aged Out No longer eligible b ased on patient's age to complete this topic
--- OUTSIDE RECORDS SUMMARY | 2024-11-13 07:13 | XMS_ITS | Encounter Summary ---
Author Organization [employer] Address [address] [facility] [address] [place] [address] Care Team Providers Care Senior Financial Analyst Name Role Phone Elizabeth Sparks MD Primary Care Pro vider Reason for Visit * Reason Onset Date Comments Appointment Request 06/15/2024 Encounter Details Date Type Department Care Team ([facility] st Contact Info) Description 06/15/2024 Telephone [facility] [address] [place] [address] Elizabeth Sparks MD [address] [place] [address] Appointment Request Social History Tobacco Use Types Packs/Day Years [...] AM EDT documented as of this encounter Miscellaneous Notes * Telephone Encounter - Yoly Post - 06/15/2024 3:24 PM EST Tc from pt sister requesting annual physical for medicare program. Contact Bruna at [phone] (greek) documented in this encounter Plan of Treatment Not on file documented as of this encounter Visit Diagnoses Not on filedocumented in this encounter Additional Health Concerns Assessment Noted Time PHQ-9 Depression Total Score: 3 06/30/20 23 2:15 PM EST documented as of this encounter Care Teams Senior Financial Analyst Relationship Specialty Start Date End Date Elizabeth Sparks MD [address] [place] [phone] PCP - General Internal Medicine 04/14/23 documented as of this encounter
--- OUTSIDE RECORDS SUMMARY | 2024-11-13 07:13 | XMS_ITS | Encounter Summary ---
Author Organization [employer] Address [address] [facility] [address] [place] [address] Care Team Providers Care Wash Worker Name Role Phone Mary Beth [facility] Primary Care Provider [phone] Elizabeth Sparks MD Primary Care Pro vider Encounter Details Date Type Department Care Team (Late st Contact Info) Description 10/22/2022 Telephone [facility] [address] [place], [place] [phone] Brianne Grossman LPN Social History Tobacco Use Types Packs/Day [...] on filedocumented in this encounter Care Teams Wash Worker Relationship Specialty Start Date End Date Mary Beth [facility] [address] [place] [address] PCP - General Family Medicine 03/27/22 04/13/23 Elizabeth Sparks MD [address] [place] [address] [phone] PCP - General Internal Medicine 04/14/23 documented as of this encounter
[2024-11-13 08:41] LABS: Alanine Aminotransferase 18 U/L (0-40); Albumin Level 4.2 g/dL (3.5-5.0); Alkaline Phosphatase 75 U/L (39-117); Anion Gap 13 (12-20); Aspartate Amino Transferase 19 U/L (5-37); Bilirubin Total 0.6 mg/dL (0.0-1.0); Blood Urea Nitrogen 16 mg/dL (9-16); Calcium 9.4 mg/dL (8.4-10.2); Carbon Dioxide 30 mmol/L (22-29); Chloride 102 mmol/L (96-108); Cholesterol 133 mg/dL (<200); Estimated Glomerular Filt Rate > 60; Glucose Random 106 mg/dL (60-115); HDL Cholesterol 31 mg/dL (>40); LDL Cholesterol Calculated 71 mg/dL (<100); Potassium 3.6 mmol/L (3.3-5.1); Sodium 141 mmol/L (135-145); Total Protein 7.3 g/dL (6.5-8.0); Triglycerides 155 mg/dL (<150)
[2024-11-13 08:44] LABS: Microalbumin Urine < 5.0 mg/L
[2024-11-13 08:44] LABS: Valproate < 12.5 mcg/mL (50.0-100.0)
== END 2024-11-13 07:11 | disposition home or self-care (01) ==
LOC: HO.LAB 07:10
PROVIDERS: PCP Student in an Organized Health Care Education/Training Program; Visit Provider Student in an Organized Health Care Education/Training Program
DX: Z00.00 Encounter for general adult medical examination without abnormal findings (principal); I10 Essential (primary) hypertension; Z86.69 Personal history of other diseases of the nervous system and sense organs
CPT/HCPCS: 36415; 80053; 80061; 80164; 82570

== ENCOUNTER 2025-01-24 10:08 | Emergency (ER) | payer MEDICARE, MEDICAID, SELFPAY ==
--- NOTE | ~2025-01-24 | CT_ITS ---
EXAMINATION: CT ABDOMEN AND PELVIS WITHOUT CONTRAST CLINICAL INFORMATION: Left flank pain COMPARISON: None available. TECHNIQUE: Multidetector volumetric imaging was performed from the superior aspect of the liver through the pubic symphysis. Sagittal and coronal reformatted images were obtained on the technologist's workstation. This CT examination was performed using dose optimization techniques as appropriate, variously including the following: *Automated exposure control *Adjustment of mA and/or kV according to patient size (this includes techniques or standardized protocols for targeted exams where dose is matched to indication/reason for exam; i.e. extremities or head) *Use of iterative reconstruction technique DLP: 388 mGY*cm FINDINGS: LUNG BASES: The visualized lung bases are unremarkable. LIVER, GALLBLADDER, AND BILIARY TREE: The liver is normal in size, shape, and attenuation. No focal hepatic lesion or biliary ductal dilatation is present. The gallbladder is unremarkable with no evidence of radiopaque gallstones, gallbladder wall thickening, or obvious pericholecystic inflammatory changes. PANCREAS: Unremarkable. SPLEEN: Unremarkable. ADRENAL GLANDS: Unremarkable. KIDNEYS AND URETERS and BLADDER: There is moderate right and severe left hydronephrosis. Ureters are dilated to the level of the bladder. However, no stones are evident. There is thickening of the posterior bladder wall just cephalad to the ureterovesicular junctions with 1.5 cm fingerlike projections extending into the bladder. GASTROINTESTINAL TRACT: The small and large bowel are unremarkable. The appendix is unremarkable. ABDOMINAL WALL: No significant hernia is appreciated. There is a high riding right testicle. LYMPH NODES: Normal. VASCULAR: Unremarkable. PELVIC VISCERA: Unremarkable. OSSEOUS STRUCTURES: 2 small benign bone islands are present in the superior pubic ramus, right greater than left. CT/CT abdomen pelvis wo IV con IMPRESSION: Bilateral hydronephrosis is greater on the left, involving both kidneys and ureters. No radiopaque stones were visualized. There is thickening of the posterior bladder wall just above the ureterovesicular junctions with small fingerlike projections raising question of malignancy such as transitional cell carcinoma. Consider cystoscopy for direct visualization. Right testicle is positioned high along the spermatic cord. Fleischner guidelines were followed. Electronically signed by: Filipe Cazares MD 01/24/2025 12:19 PM EDT
[2025-01-24 10:11] VITALS: BP 155/68; PULSE 81; RESP 18; TEMP 36.9; O2SAT 99; BMI 23.8
[2025-01-24 10:44] VITALS: BP 138/59; PULSE 65; RESP 16; O2SAT 98
[2025-01-24 11:06] LABS: Appearance Urine Clear; Color Urine Yellow; Glucose Urine UA Negative (Negative); Leukocyte Esterase Urine Large (3+) (Negative); Nitrite Urine Negative (Negative); PH 6.5 (5.0-9.0); UMIC TRIGGER UACC YES; Urine Blood Negative (Negative); Urine Ketones Negative (Negative); Urine Protein Negative (Neg-Trace)
[2025-01-24 11:08] LABS: Bacteria Urine None Seen (None Seen); Hyaline Casts Urine 0-2 /LPF (0-2); RBC Urine 0-2 /HPF (0-2); Squamous Epithelial Cell Urine 0-2 /HPF (0-2); UACC Culture Trigger YES; WBC Urine >50 /HPF (0-5)
--- NOTE | 2025-01-24 11:31 | ED_ITS ---
HPI - General Adult General Chief complaint: Abdominal Pain Stated complaint: L Side Pain Time Seen by Provider: 01/24/25 11:20 Source: patient, family (Sister) and sweetbread trimmer Mode of arrival: ambulatory Limitations: no limitations History of Present Illness ED Provider: DR. Helm HPI narrative: A 55-year-old male came for evaluation of 3 days of sided abdominal/left flank pain and frequency urination with painful urination, patient with no history of previous UTI, patient also declined any history of intra-abdominal surgery, chills, no nausea, no vomiting, passing flatus normally, last bowel movement was normal this morning, no blood in the urine or in the stool, no risk for STDs as per patient. Related Data Home Medications ?Medication ?Instructions ?Recorded ?Confirmed amlodipine 10 mg tablet 10 mg PO DAILY 03/13/2102/01 ketoconazole 2 % shampoo topical DIRECTED 03/13/21 02/11/24 valsartan 160 1 tab PO DAILY 03/13/2102/01 mg-hydrochlorothiazide 25 mg tablet cholecalciferol (vitamin D3) 50 50 mcg PO DAILY 02/11/24 mcg (2,000 unit) capsule (Vitamin D3) clonidine HCl 0.1 mg tablet 0.1 mg PO BEDTIME 08/27/21 02/11/24 atorvastatin 20 mg tablet 20 mg PO DAILY 05/27/2202/01 Previous Rx's ?Medication ?Instructions ?Recorded polyethylene glycol 3350 17 17 g PO DAILY #510 grams 1 gram/dose oral powder (Miralax) omeprazole 20 mg capsule,delayed 20 mg PO DAILY #90 ca ps 11/05/22 release cefuroxime axetil 500 mg tablet 500 mg PO BID 7 days # 14 tabs 01/24/25 Allergies Allergy/AdvReac Type Severity Reaction Status Date / Time No Known Allergies Allergy Verified 01/24/25 10:12 Review of Systems 2 Review of Systems: All other systems are reviewed and are negative Constitutional: Reports as per HPI and Reports no additional constitutional complaints Eyes: Reports as per HPI and Reports no additional eye complaints Reports system reviewed and no additional complaints, except as documented Cardiovascular: Reports as per HPI and Reports no additional cardiovascular complaints Respiratory: Reports as per HPI and Reports no additional respiratory complaints Gastrointestinal: Reports as per HPI and Reports no additional gastrointestinal complaints Genitourinary: Reports no additional female genitourinary complaints Musculoskeletal: Reports no additional musculoskeletal complaints Skin/Breast: Reports system reviewed and no additional complaints, except as docu Psychiatric: Reports no additional psychiatric complaints Endocrine: Reports no additional endocrine complaints Hematologic/Lymphatic: Reports no additional hematologic/lymphatic complaints Allergic/Immunologic: Reports no additional allergic/immunologic complaints Reports system reviewed and no additional complaints, except as documented and Reports Abnormal speech present [facility] Past Medical History Medical History Dysphagia Vitamin D deficiency Hx of seizure disorder Hyperlipidemia Kinetic tremor Anxiety Prediabetes Mental disability HTN (hypertension) Surgical History Hx of esophagogastroduodenoscopy Hx of colonoscopy Hx of hernia repair Family History Family History Mother Stomach cancer Chronic heart failure Social History Social History Alcohol intake: never Patient Tobacco Use Status: Never used Tobacco Smoked in Last 30 Days: No Use of substances other than those prescribed or required for medical reasons: No Advance Directives: No Advance Directives Information Provided: Yes Current occupational status: disabled Current occupation: left hand Physical Exam ED Vital Signs: Vital Signs - 24 hr 01/24/25 10:11 01/24/25 10:44 01/24/25 12:02 Temperature 98.5 F 98.1 F Pulse Rate 81 65 68 Respiratory Rate 18 16 16 Blood Pressure 155/68 H 138/59 L 128/83 Pulse Oximetry 99 98 98 Oxygen Delivery Method Room Air Room Air Room Air BMI result Body Mass Index 23.8 Vital signs have been reviewed and appear to be correct. Blood pressure elevated. Heart rate normal. Respiratory rate normal. Temperature normal. Oxygen saturation normal. Appearance: Alert. Oriented X3. No acute distress. Head: Normal external exam. Normocephalic. Atraumatic. No Lopez signs noted. No raccoon eyes noted Eyes: PERRLA. EOMI. Conjunctiva and sclera normal. Eyelids normal. ENT: TM's Normal. Pharynx normal. Uvula midline. Moist mucous membranes. No trismus noted. No drooling noted. No muffled voice noted. Neck: Normal inspection. Neck supple. FROM. No adenopathy. Thyroid Normal. No meningeal signs. No neck mass noted. CVS: Normal heart rate and rhythm. Heart sound normal. No murmurs noted. Pulses normal throughout. Respiratory: No respiratory distress. Painless inspiration. Breath sounds normal. No wheezes/rales/rhonchi noted. Chest nontender. No accessory muscle usage noted or decreased air movement noted. Abdomen: Soft and nontender. Bowel sounds normal in all 4 quadrants. No distention noted. No organomegaly noted. No visible injury noted. Back: Left CVA tenderness. Full range of motion noted. Skin: Skin warm and dry. Normal skin color. Normal skin turgor. No rashes/lesions/lacerations noted. Extremities: No lower extremity edema. Extremities exhibit normal range of motion. Extremities nontender. Neuro: Oriented X 3. Cranial nerve exam: II-XII are grossly intact No motor deficit. No sensory deficit. Reflexes normal. Course Reevaluation(s) Reevaluation #1: 55-year-old male came in with UTI first-time history of UTI, CT is raising suspicion for bladder malignancy, the case was discussed with Dr. Womack who recommended to discharge the patient treating UTI and see him as an outpatient. Will discharge the patient on Ceftin with encouraged to drink plenty of fluids. Time: 13:10 Medications Administered Discontinued Medications Generic Name Dose Route Start Last Admin Trade Name Freq PRN Reason Stop Dose Admin Ceftriaxone Sodium 1 gm 01/24/25 11:29 01/24/25 11:55 Ceftriaxone Sodium 1 Gm Vial IVPUSH 01/24/25 11:30 1 gm ONCE ONE Administration Sodium Chloride 1,000 mls @ 999 mls/hr 01/24/25 11:29 01/24/25 11:55 Ns IV 01/24/25 12:29 999 mls/hr .Q1H1M ONE Administration Medical Decision Making Differential Diagnosis Differential Diagnoses: The differential diagnosis associated with the presentation includes (UTI, pyelonephritis, obstructive uropathy, STDs, electrolyte derangement, severe anemia.) Admission/Observation Consideration of admission/observation: Escalation of care including admission/observation considered Consult Healthcare Provider Management of the patient was discussed with: Manual Lathe Machinist (Dr. Womack) Lab Data [facility] Lab Attestation statement: I reviewed the patient's lab results. 01/24/25 11:53 01/24/25 11:53 Labs: Lab Results 01/24/25 01/24/25 Range/Units 10:58 11:53 WBC 7.4 (4.8-10.8) X10*3/uL RBC 4.11 L (4.60-5.80) X10*6/uL Hgb 12.4 L (14.0-18.0) g/dl Hct 36.4 L (42.0-52.0) % MCV 88.6 (80.0-98.0) fL MCH 30.2 (27.0-33.0) pg MCHC 34.1 (31.0-36.0) g/dl RDW 12.4 (11.0-16.0) % Plt Count 382 (160-400) X10*3/uL MPV 8.7 L (9.4-12.4) fL Immature Gran % (Auto) 0.3 (0.0-0.4) % Neut % (Auto) 75.8 H (45-73) % Lymph % (Auto) 18.0 L (20-40) % [place] % (Auto) 5.3 (2-11) % Eos % (Auto) 0.3 (0-4) % Baso % (Auto) 0.3 (0-2) % Lymph # (Auto) 1.3 (1.2-4.9) X10*3/uL [place] # (Auto) 0.4 (0.1-1.2) X10*3/uL Eos # (Auto) 0.0 (0.0-0.4) X10*3/uL Baso # (Auto) 0.0 (0.0-0.2) X10*3/uL Abs Immat Gran (auto) 0.02 (0.00-0.03) X10*3/uL Absolute Neuts (auto) 5.6 (2.0-8.3) x10*3/uL Absolute Nucleated RBC 0.000 (0.0-0.012) X10*3/uL Nucleated RBC % (auto) 0.0 (0.0-0.2) /100WBC Sodium 142 (135-145) mmol/L Potassium 3.5 (3.3-5.1) mmol/L Chloride 105 (96-108) mmol/L Carbon Dioxide 28 (22-29) mmol/L Anion Gap 13 (12-20) BUN 14 (9-16) mg/dL Creatinine 1.01 (0.5-1.4) mg/dL Estim Creat Clear Calc 70.0 Estimated GFR > 60 Random Glucose 106 (60-115) mg/dL Lactic Acid 1.3 (0.5-2.0) mmol/L Calcium 9.6 (8.4-10.2) mg/dL Urine Color Yellow Urine Appearance Clear Urine pH 6.5 (5.0-9.0) Ur Specific [place] 1.010 (1.005-1.025) Urine Protein Negative (Neg-Trace) mg/dL Urine Glucose (UA) Negative (Negative) mg/dL Urine Ketones Negative (Negative) mg/dL Urine Blood Negative (Negative) Urine Nitrite Negative (Negative) Ur Leukocyte Esterase Large (3+) H (Negative) Urine RBC 0-2 (0-2) /HPF Urine WBC >50 H (0-5) /HPF Ur Squamous Epith Cells 0-2 (0-2) /HPF Urine Bacteria None Seen (None Seen) Hyaline Casts 0-2 (0-2) /LPF Independent Interpretation I performed an independent interpretation of an: CT Scan (Abdomen and pelvis:[address] [id number] [address] Scan Report Signed Patient: Shan Mendez MR#: [id number] : 1970 Acct:[id number] Age/Sex: 55 / M ADM Date: 01/24/25 Loc: .ED Attending Dr: Ordering Physician: Derrek Helm MD Date of Service: 01/24) Radiology Impression Discussion of test interpretation with radiology: I have reviewed the radiologist's reading. Discharge Plan Discharge Clinical Impression: Acute UTI, Neoplasm of bladder Patient Disposition: Home, Self-Care Instructions: Urinary Tract Infection in Men (ED) Prescriptions: New cefuroxime axetil 500 mg tablet 500 mg PO BID 7 Days Qty: 14 0RF No Action clonidine HCl 0.1 mg Tablet 0.1 mg PO BEDTIME cholecalciferol (vitamin D3) [Vitamin D3] 50 mcg (2,000 unit) Capsule 50 mcg PO DAILY valsartan-hydrochlorothiazide 160-25 mg tablet 1 tab PO DAILY amlodipine 10 mg tablet 10 mg PO DAILY ketoconazole 2 % shampoo topical DIRECTED omeprazole 20 mg capsule,delayed release(DR/EC) 20 mg PO DAILY Qty: 90 3RF Rx Instructions: Candace 1 capsula media hora antes del desayuno atorvastatin 20 mg tablet 20 mg PO DAILY polyethylene glycol 3350 [Miralax] 17 gram/dose powder 17 g PO DAILY Qty: 510 2RF Referrals: Alireza Womack MD [Physician, Urology] Elizabeth Sparks MD [Primary Care Provider, Internal Medicine] Print Language: Macedonian
[2025-01-24] MEDS: 0.9 % Sodium Chloride 1,000 ML 999 ML IV (11:55)
[2025-01-24] MEDS: cefTRIAXone sodium 1 GM VIAL IVPUSH (11:55)
[2025-01-24 12:02] VITALS: BP 128/83; PULSE 68; RESP 16; TEMP 36.7; O2SAT 98
[2025-01-24 12:03] LABS: MANUAL DIFF FLAG NO
[2025-01-24 12:06] LABS: Basophils Percent Auto 0.3 % (0-2); Eosinophils Percent Auto 0.3 % (0-4); Hematocrit 36.4 % (42.0-52.0); Hemoglobin 12.4 g/dl (14.0-18.0); Imm Gran Abs Auto 0.02 X10*3/uL (0.00-0.03); Imm Gran Pct Auto 0.3 % (0.0-0.4); Lymphocytes Absolute Auto 1.3 X10*3/uL (1.2-4.9); Mean Corpuscular HGB Conc 34.1 g/dl (31.0-36.0); Mean Corpuscular Hemoglobin 30.2 pg (27.0-33.0); Mean Corpuscular Volume 88.6 fL (80.0-98.0); Mean Platelet Volume 8.7 fL (9.4-12.4); Monocytes Absolute Auto 0.4 X10*3/uL (0.1-1.2); Monocytes Percent Auto 5.3 % (2-11); Neutrophils Absolute Auto 5.6 x10*3/uL (2.0-8.3); Neutrophils Percent Auto 75.8 % (45-73); Platelet Count 382 X10*3/uL (160-400); Red Blood Count 4.11 X10*6/uL (4.60-5.80); Red Cell Distribution Width 12.4 % (11.0-16.0); White Blood Count 7.4 X10*3/uL (4.8-10.8)
[2025-01-24 12:18] LABS: Anion Gap 13 (12-20); Blood Urea Nitrogen 14 mg/dL (9-16); Calcium 9.6 mg/dL (8.4-10.2); Carbon Dioxide 28 mmol/L (22-29); Chloride 105 mmol/L (96-108); Estimated Glomerular Filt Rate > 60; Glucose Random 106 mg/dL (60-115); Potassium 3.5 mmol/L (3.3-5.1); Sodium 142 mmol/L (135-145)
[2025-01-24 12:19] LABS: Lactic Acid 1.3 mmol/L (0.5-2.0)
--- OUTSIDE RECORDS SUMMARY | 2025-01-24 12:37 | XMS_ITS | Encounter Summary ---
Author Organization [employer] Address [address] [facility] [address] [place] [address] Care Team Providers Care Manager Automotive Name Role Phone Elizabeth Sparks MD Primary Care Pro vider Reason for Visit * Reason Onset Date Comments Appointment Request 05/20/2024 Encounter Details Date Type Department Care Team ([facility] st Contact Info) Description 05/20/2024 Telephone [facility] MEDICINE [address] [place] [address] Elizabeth Sparks MD [address] [place] [address] Appointment Request Social History Tobacco Use Types [...] * Telephone Encounter - Yoly Post - 05/20/2024 3:35 PM EDT Tc from pt sister Bruna requesting to schedule OV extended (annual clearance) Pt denied appointment for July due to pt needing it for June. Contact Bruna [phone] (singaporean) documented in this encounter Plan of Treatment Not on file documented as of this encounter Visit Diagnoses Not on filedocumented in this encounter Additional Health Concerns Assessment Noted Time PHQ-9 Depression Total Score: 3 06/30/20 23 2:15 PM EST documented as of this encounter Care Teams Manager Automotive Relationship Specialty Start Date End Date Elizabeth Sparks MD [address] [place] [id number] PCP - General Internal Medicine 04/14/23 documented as of this encounter
[2025-01-24 13:33] VITALS: BP 128/83; PULSE 68; RESP 16; TEMP 36.7; O2SAT 98
== END 2025-01-24 13:33 | disposition home or self-care (01) ==
PROVIDERS: Emergency Provider Emergency Medicine; PCP Student in an Organized Health Care Education/Training Program
DX: N39.0 Urinary tract infection, site not specified (principal); R10.2 Pelvic and perineal pain; R35.0 Frequency of micturition; Z79.899 Other long term (current) drug therapy
CPT/HCPCS: 36415; 74176; 80048; 81001; 83605; 85025; 87040; 87086; 96361; 96374; 99284; J0696

== ENCOUNTER → 2025-01-24 11:29 | Outpatient (BNV) | payer MEDICARE, MEDICAID, SELFPAY | PROVIDERS: Emergency Provider Emergency Medicine; PCP Student in an Organized Health Care Education/Training Program; Visit Provider Radiology Diagnostic Radiology | DX: R10.812 Left upper quadrant abdominal tenderness (principal) | CPT/HCPCS: 74176 ==

== ENCOUNTER 2025-01-27 09:04 | Outpatient (AMB) | payer MEDICARE, MEDICAID, SELFPAY ==
--- NOTE | 2025-01-27 09:07 | MHC.OFFVIS ---
Intake Visit Reasons: bladder mass/hydronephrosis Intake Note: Patient is present for BLADDER MASS/HYDRONEPHROSIS Urology Medication:NONE Antibiotic Allergy:NONE Blood Thinner:NONE Home Restoration Service Cleaner Required: No Allergies No Known Allergies Allergy (Verified 01/27/25 09:08) HPI Comments Details: Shan is a Guyanese-speaking male with developmental delay. He is a patient of Dr. Craig. He seen for the following urologic conditions. - impaired bladder emptying Translation provided by qualified medical instructor Accompanied by family member Longstanding issue with urination Recent CT imaging showing bladder thickening and bilateral hydronephrosis Creatinine 1.0 Recommend office cystoscopy Patient unable to tolerate procedure in office Recommend cystoscopy with bilateral retrograde and bladder biopsy in the operating room Start alpha-jeanine PFSH Medical History Dysphagia Vitamin D deficiency Hx of seizure disorder Hyperlipidemia Kinetic tremor Anxiety Prediabetes Mental disability HTN (hypertension) Surgical History Hx of esophagogastroduodenoscopy Hx of colonoscopy Hx of hernia repair Family History Mother Stomach cancer Chronic heart failure Social History Alcohol intake: never Patient Tobacco Use Status: Never used Tobacco Current occupational status: disabled Current occupation: left hand Review of Systems Const Denies chills and Denies fever(s) Card Reports no additional complaints and Denies syncope Resp Denies cough GI Denies abdominal pain and Denies heartburn Reports as per HPI and Denies change in libido Neuro Denies syncope Psych Denies change in libido Endo Denies change in libido Physical Exam Const General: cooperative, healthy appearing, comfortable and no acute distress Orientation/consciousness: patient oriented x3 HEENT Face and sinus: Yes normal facial exam Mouth: moist mucous membranes Neck Neck: Yes normal visual inspection, Yes full ROM and Yes trachea midline Chest Chest palpation & inspection: normal inspection of the chest Resp Effort & Inspection: normal respiratory effort, able to speak in complete sentences and no respiratory distress GI Inspection: Yes normal to inspection Back/Spine/Pelvis Cervical Spine: normal cervical lordosis Thoracic/Lumbar Spine: thoracic and lumbar spine normal to inspection Skin General skin exam: no rashes or lesions noted Neuro General: patient oriented x3, gait normal, tone normal and moves all extremities Extrem General: Yes normal to inspection and Yes capillary refill normal Assessment & Plan Assessment & Plan (1) Developmental delay, moderate: Code(s): R62.50 - Unspecified lack of expected normal physiological development in childhood Category: Medical (2) Bladder outlet obstruction: Code(s): N32.0 - Bladder-neck obstruction Category: Medical Plan Risks, benefits and alternatives to therapy were discussed. These include but are not limited to infection, bleeding, damage to local organs and tissues, need for further interventions. Anesthetic risks regarding cardiac arrhythmia, blood clots, and potential mortality were discussed. The patient understands the typical recovery time and the outpatient nature of the procedure. After consideration of these risks the patient gives full informed consent and they wish to move ahead with the procedure. - cystoscopy, bilateral retrograde, bladder biopsy Orders: Orders AMB Urinalysis Automated Today Z13.9 - Encounter for screening, unspecified Urine Culture Today N39.0 - Urinary tract infection, site not specified Medications: New tamsulosin 0.4 mg PO BEDTIME 90 caps 1RF 90 days N13.8 - Other obstructive and reflux uropathy, N32.0 - Bladder-neck obstruction, N40.1 - Benign prostatic hyperplasia with lower urinary tract symptoms Patient Instructions: This note is constructed using voice recognition software. While every effort has been made to ensure accuracy medical technologist blood bank errors may have been included. Imaging studies, laboratory and physical exam results were discussed and reviewed in detail. No major barriers to patient understanding were identified. An opportunity to ask questions regarding the treatment plan was provided. All questions were answered. The patient expressed understanding and agreement with the above treatment plan. The patient is aware they should contact our office by phone for worsening of their current condition or the appearance of new urologic symptoms. Compliance is encouraged with any medications and followup testing that is ordered. It is a privilege to participate in the urologic care of your patient. If you have any questions or concerns regarding treatment for the above conditions, or other urologic issues, please do not hesitate to contact me. The office telephone contact is [phone]. Sincerely, Dr Alireza Womack MD, [facility] - Urology Compassionate Specialist Care for the Genitourinary System Coding Level of Care Code New Pt Level 4 (57224) Diagnoses Developmental delay, moderate R62.50 Bladder outlet obstruction N32.0
--- OUTSIDE RECORDS SUMMARY | 2025-01-27 09:50 | XMS_ITS | Encounter Summary ---
Author Organization [employer] Address [address] [facility] [address] [place] [address] Care Team Providers Care Reach Lift Truck Driver Name Role Phone Elizabeth Sparks MD Primary Care Pro vider Reason for Visit * Reason Onset Date Comments Appointment Request 05/20/2024 Encounter Details Date Type Department Care Team ([facility] st Contact Info) Description 05/20/[address] [facility] MED[facility]INE [address] [place] [address] Elizabeth Sparks MD [address] [place] [address] Appointment Request Social History Tobacco Use Types [...] pt needing it for June. Contact Bruna [phone] (slovak) documented in this encounter Plan of Treatment Upcoming Encounters Date Type Department Care Team (Late st Contact Info) Description 01/28/2025 11:30 AM EDT Office Visit [facility] [address] [place] [address] [place] [facility] [address] [place] [address] documented as of this encounter Visit Diagnoses Not on filedocumented in this encounter Additional Health Concerns Assessment Noted Time PHQ-9 Depression Total Score: 3 06/30/20 23 2:15 PM EST documented as of this encounter Care Teams Reach Lift Truck Driver Relationship Specialty Start Date End Date Elizabeth Sparks MD [address] [place] [address] PCP - General Internal Medicine 04/14/23 documented as of this encounter
== END 2025-01-27 09:43 | disposition home or self-care (01) ==
LOC: HO.HUSH 09:05
PROVIDERS: PCP Student in an Organized Health Care Education/Training Program; Visit Provider Urology
DX: R62.50 Unspecified lack of expected normal physiological development in childhood (principal); N32.0 Bladder-neck obstruction; Z13.9 Encounter for screening, unspecified
CPT/HCPCS: 99204

== ENCOUNTER 2025-01-27 09:04 | Outpatient (REF) | payer MEDICARE, MEDICAID, SELFPAY | END 2025-01-27 09:05 | disposition home or self-care (01) | LOC: HO.LAB 09:04 | PROVIDERS: PCP Student in an Organized Health Care Education/Training Program; Visit Provider Urology | DX: N39.0 Urinary tract infection, site not specified (principal); Z13.9 Encounter for screening, unspecified; N32.0 Bladder-neck obstruction | CPT/HCPCS: 81003; 87086; 99202 ==

== ENCOUNTER 2025-02-18 09:25 | Outpatient (AMB) | payer MEDICARE, MEDICAID, SELFPAY ==
--- NOTE | 2025-02-18 09:28 | A.OFFVIS_ITS ---
Vital Signs 02/18/25 09:30 Height 5 ft 4 in Weight 139 lb BMI 23.9 BP 133/63 Blood Pressure Location Lt brachial Position Sitting Pulse 65 Pulse Oximetry (%) 98 Oxygen Delivery Method Room Air Intake Visit Reasons: BAY w/ Kylah11/2022. Hx of GERD Intake Note: Patient follow up or GERD and EGD screening Patient cc: LLQ pain, GERD is better, denies any other GI issues. Eeg Technologist Required: Yes Eeg Technologist Name: Renae [id number] Accompanied by: Self / Same As Patient Allergies No Known Allergies Allergy (Verified 02/18/25 09:28) HPI HPI BAY w/ Kylah 11/2022. Hx of GERD: Details: GERD (gastroesophageal reflux disease) Patient is taking omeprazole twice a day. We will have him take omeprazole daily. His symptoms have improved. Discussed with him the importance of avoiding dietary triggers in late night snacking. Staying upright for minimum 3 hours after meals discussed with him. Postprandial abdominal bloating Patient denies postprandial abdominal bloating. States that he is moving his bowels better now that he is taking MiraLax. I will see him in 1 year, sooner on as needed basis. Patient is agreeable to this plan and verbalizes understanding of instructions. He was given the opportunity to ask questions all questions answered. ? Thank you for allowing me to participate in his care Plan Changed From omeprazole Candace 1 capsula media hora antes del desayuno y media hora antes de la wisam 20 mg PO BID 180 caps 3RF K21.9 - Gastro-esophageal reflux disease without esophagitis To omeprazole Candace 1 capsula media hora antes del desayuno 20 mg PO DAILY 90 caps 3RF K21.9 - Gastro-esophageal reflux disease without esophagitis TODAY'S VISIT Patient is here today for follow-up and to discuss going for upper endoscopy. Patient has been taking omeprazole and for the most part his symptoms are suppressed. However patient does admit that occasionally he will have epigastric pain and reflux. Denies dyspepsia, dysphagia or odynophagia. He had upper endoscopy in 2021 that showed mild chronic inactive gastritis. Patient reports that he is moving his bowels well without any issues. Denies melena, hematochezia, unintentional weight loss or ribbon like stools. Patient is occasionally using MiraLax. No issues with anesthesia in the past. No history of sleep apnea. Not on any anticoagulation medication [facility] Medical History (Updated 02/18/25 @ 18:48 by Janette Rojas, [facility]) GERD (gastroesophageal reflux disease) Dysphagia Vitamin D deficiency Hx of seizure disorder Hyperlipidemia Kinetic tremor Anxiety Prediabetes Mental disability HTN (hypertension) Surgical History Hx of esophagogastroduodenoscopy Hx of colonoscopy Hx of hernia repair Family History Mother Stomach cancer Chronic heart failure Social History Alcohol intake: never Patient Tobacco Use Status: Never used Tobacco Current occupational status: disabled Current occupation: left hand Review of Systems Const Denies weight gain and Denies weight loss ENT Reports no additional complaints, Denies dysphagia and Denies odynophagia Card Reports no additional complaints Resp Reports no additional complaints GI Denies abdominal pain, Denies belching, Denies melena, Denies bloating, Denies change in bowel habits, Denies dysphagia, Denies excessive flatus, Denies dyspepsia, Reports heartburn (Occasional), Denies diarrhea, Denies loose stools, Denies nausea, Denies odynophagia and Denies vomiting Reports no additional complaints Musc Reports no additional complaints Neuro Reports no additional complaints Psych Reports no additional complaints Endo Reports no additional complaints Physical Exam Vital Signs: Last Vital Signs Pulse 65 02/18/25 09:30 BP 133/63 02/18/25 09:30 Pulse Ox 98 02/18/25 09:30 Oxygen Delivery Method Room Air 02/18/25 09:30 BMI result Body Mass Index 23.9 Const General: healthy appearing, no acute distress and well developed Nutritional Appearance: well nourished Orientation/consciousness: patient oriented x3 HEENT Head: Yes normal to inspection, Yes normocephalic and Yes atraumatic Face and sinus: Yes normal facial exam Mouth: Normal oral and palatal mucosa present Throat: Yes posterior oropharynx normal, Yes tonsils normal and Yes uvula midline Eyes General: appearance normal, both eyes and all related structures Neck Neck: Yes normal visual inspection, Yes full ROM and Yes trachea midline Thyroid: Thyroid normal Resp Effort & Inspection: normal respiratory effort, able to speak in complete sentences, no tracheal deviation and symmetric chest movement Auscultation: clear to auscultation bilaterally Cardio Rate: regular rate Heart sounds: S1 normal heart sound present, S2 normal heart sound present, no gallops and no murmurs GI Inspection: Yes normal to inspection and No distended Palpation (GI): Soft to palpation, not firm, nontender and No hepatosplenomegaly present Auscultation: normal bowel sounds General: Yes no CVA tenderness Back/Spine/Pelvis Back: no CVA tenderness Skin General skin exam: elasticity normal, turgor normal and dry skin Neuro General: patient oriented x3 Psych Appearance: grossly normal Mental Status: mental status grossly normal Speech and movement: Normal speech and movement present Attitude: cooperative Assessment & Plan Assessment & Plan (1) Gastroesophageal reflux disease: Code(s): K21.9 - Gastro-esophageal reflux disease without esophagitis Qualifiers: Esophagitis presence: esophagitis presence not specified Qualified Code(s): K21.9 - Gastro-esophageal reflux disease without esophagitis (2) Postprandial abdominal bloating: Code(s): R14.0 - Abdominal distension (gaseous) Plan Continue omeprazole daily. Avoid dietary triggers and late night snacking. Staying upright for minimum 3 hours after meals discussed with patient. Increase fluid intake and activity to promote better bowel motility. Continue MiraLax as needed. What to expect before during and after procedure discussed with patient. I will see pt after endoscopy. He will call us if he will have any GI concerning symptoms. Both patient and his sister are agreeable to this plan and verbalizes understanding of instructions. They were given the opportunity to ask questions and all questions answered. Thank you for allowing me to participate in his care Medications: Refilled omeprazole Candace 1 capsula media hora antes del desayuno 20 mg PO DAILY 90 caps 3RF K21.9 - Gastro-esophageal reflux disease without esophagitis Coding Level of Care Code Est Pt Level 3 (97352) Diagnoses Gastroesophageal reflux disease, unspecified whether esophagitis present K21.9 Esophagitis presence: esophagitis presence not specified Postprandial abdominal bloating R14.0 Time Spent (min) 30 Comment 20 minutes spent with patient and additional 10 minutes spent reviewing his records
[2025-02-18 09:30] VITALS: BP 133/63; PULSE 65; O2SAT 98; BMI 23.9
--- OUTSIDE RECORDS SUMMARY | 2025-02-18 09:32 | XMS_ITS | Encounter Summary ---
Author Organization [employer] Address [address] [place] [address] [address] [place] [address] Care Team Providers Care Precision Assembler Name Role Phone Essie Clinton [facility] Primary Care Provider [phone] Elizabeth Sparks MD Primary Care Pro vider Encounter Details Date Type Department Care Team (Late st Contact Info) Description 10/22/2022 Telephone [facility] MEDICINE [address] [place], [place] [phone] Brianne Grossman LPN Social History Tobacco Use [...] on filedocumented in this encounter Care Teams Precision Assembler Relationship Specialty Start Date End Date [facility] [address] [place] [address] PCP - General Family Medicine 03/27/22 04/13/23 Elizabeth Sparks MD [address] [place] [address] PCP - General Internal Medicine 04/14/23 documented as of this encounter
--- OUTSIDE RECORDS SUMMARY | 2025-02-18 09:32 | XMS_ITS | Clinical Summary ---
Author Organization [facility] Address [address] [place] [address] Care Team Providers Care Home Health Aide Name Role Phone Unavailable Primary Care Provider Unavailabl e Social History Tobacco Use Types Packs/Day Years Used Date Smoking Tobacco: Never Assessed Sex and Gender Information Value Date Recorded Sex Assigned at Not on file Legal Sex Male 6:53 PM EST Gender Identity Not on file Sexual Orientation Not on file Plan of Treatment Health Maintenance Due Date Last Done Comments Hepatitis C Virus Screening 1971 HIV Screening 01/02/1984 DTaP/Tdap/Td Vaccines (1 - Tdap) 1990 Hepatitis B Vaccines (1 of 3 - 19+ 3-dose series) 12/04 Pneumococcal Vaccines 50+ (1 of 1 - PCV) 2021 Zoster (Shingles) Vaccine (1 of 2) 2021 COVID-19 Vaccine ( - 2023- season) 2024
--- OUTSIDE RECORDS SUMMARY | 2025-02-18 09:32 | XMS_ITS | Clinical Summary ---
Author Organization [employer] [facility] Address [address] [place] [address] Care Team Providers Care Industrial Insulator Name Role Phone Unavailable Primary Care Provider [...] Influencers of Health Screening 05/11/2024 Influenza Vaccine (#1) 2025 HIB Vaccines Aged Out No longer [...]
== END 2025-02-18 09:56 | disposition home or self-care (01) ==
LOC: HO.HGI 09:26
PROVIDERS: PCP Student in an Organized Health Care Education/Training Program; Visit Provider Nurse Practitioner Family
DX: K21.9 Gastro-esophageal reflux disease without esophagitis (principal); R14.0 Abdominal distension (gaseous)
CPT/HCPCS: 99213

== ENCOUNTER → 2025-02-18 09:25 | Outpatient (BNVA) | payer MEDICARE, MEDICAID, SELFPAY | PROVIDERS: PCP Student in an Organized Health Care Education/Training Program; Visit Provider Nurse Practitioner Family | DX: K21.9 Gastro-esophageal reflux disease without esophagitis (principal); R14.0 Abdominal distension (gaseous) | CPT/HCPCS: 99212 ==

== ENCOUNTER 2025-04-11 05:58 | Day surgery (SDC) | payer MEDICARE, MEDICAID, SELFPAY ==
--- OUTSIDE RECORDS SUMMARY | 2025-03-02 12:37 | XMS_ITS | Clinical Summary ---
Author Organization [facility] Address [address] [place] [address] Care Team Providers Care Product Safety Specialist Name Role Phone Unavailable Primary Care Provider [...]
--- OUTSIDE RECORDS SUMMARY | 2025-03-02 12:37 | XMS_ITS | Encounter Summary ---
Author Organization [employer] Address [address] [place] [address] [address] [address] Care Team Providers Care Flower Pot Press Operator Name Role Phone Essie Clinton [facility] Primary Care Provider [phone] Elizabeth Sparks MD Primary Care Pro vider Encounter Details Date Type Department Care Team (Late st Contact Info) Description 10/22/2022 Telephone [facility] MEDICINE [address] [place], [place] [phone] Brianne Grossman LPN Social History Tobacco Use [...] on filedocumented in this encounter Care Teams Flower Pot Press Operator Relationship Specialty Start Date End Date [facility] [address] [place] [address] PCP - General Family Medicine 03/27/22 04/13/23 Elizabeth Sparks MD [address] [place] [address] PCP - General Internal Medicine 04/14/23 documented as of this encounter
--- OUTSIDE RECORDS SUMMARY | 2025-03-02 12:37 | XMS_ITS | Clinical Summary ---
Author Organization [employer] [facility] ity Address [address] [place] [address] Care Team Providers Care Chief Nurse Name Role Phone Unavailable Primary Care Provider [...] Panel) 05/11/2024 Colorectal Cancer Screening: Colonoscopy 05/11/2024 HIV Screening 05/11/2024 Hepatitis C Screening 05/11/2024 Social Influencers of Health Screening 05/11/2024 Depression Screening 08/04/2024 Influenza Vaccine (#1) 2025 HIB Vaccines Aged [...]
[2025-04-07 08:56] VITALS: BMI 23.1
--- NOTE | 2025-04-08 08:45 | HO.ANESPROP2 ---
HPI - Anesthesia Eval Consult details Narrative: 55 yr old male for cystoscopy, retrograde with bladder biopsy, bilateral Mental disability H/O seizure disorder: on valproic acid, last seizure many years ago, when he was little per sister; follows with PCP only for now. [facility] Active Problems Active Problems: All Active Problems (Updated 02/18/25 @ 18:48 by DORA Ga-) GERD (gastroesophageal reflux disease) (Acute) Bladder outlet obstruction (Acute) Developmental delay, moderate (Acute) LVH (left ventricular hypertrophy) (Acute) Osteoarthritis of right knee (Acute) HTN (hypertension) (Acute) Kinetic tremor (Acute) Mental disability (Acute) Past Medical History Medical History (Updated 02/18/25 @ 18:48 by DORA Ga-KEVIN) GERD (gastroesophageal reflux disease) Dysphagia Vitamin D deficiency Hx of seizure disorder Hyperlipidemia Kinetic tremor Anxiety Prediabetes Mental disability HTN (hypertension) Family History Family History Mother Stomach cancer Chronic heart failure Surgical History Surgical History Hx of esophagogastroduodenoscopy Hx of colonoscopy Hx of hernia repair History of Problems with Anesthesia: No Social History Social History Alcohol intake: never Patient Tobacco Use Status: Never used Tobacco Current occupational status: disabled 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 occupation: left hand [employer] Allergies Allergy/AdvReac Type Severity Reaction Status Date / Time No Known Allergies Allergy Verified 02/18/25 09:28 Home Medications ?Medication ?Instructions ?Recorded ?Confirmed ?Last Taken ?Type amlodipine 10 mg tablet 10 mg PO DAILY 03/13/21 04/07/25 Unknown History ketoconazole 2 % shampoo topical DIRECTED 03/13/21 02/11/24 Unknown History valsartan 160 1 tab PO DAILY 03/13/21 04/07/25 Unknown History mg-hydrochlorothiazide 25 mg tablet cholecalciferol (vitamin D3) 50 50 mcg PO DAILY 08/27/21 02/11/24 Unknown History mcg (2,000 unit) capsule (Vitamin D3) clonidine HCl 0.1 mg tablet 0.1 mg PO BEDTIME 08/27/21 04/07/25 Unknown History atorvastatin 20 mg tablet 20 mg PO DAILY 05/27/22 04/07/25 Unknown History hydroxyzine HCl 10 mg tablet 10 mg PO TID PRN Anxiety 04/07/25 04/07/25 Unknown History valproic acid 250 mg capsule 250 mg PO BID 04/07/25 04/07/25 Unknown History Exam Height,Weight and Vital Signs: Height 5 ft 5.8 in Weight 64.5 kg Narrative Narrative: ECHO 02/2024 Conclusions: - The left ventricular systolic function is normal. The calculated ejection fraction is 64% by biplane method. - No obvious valvular pathology seen on this study. EKG 2023 NSR, No acute ST-T wave changes, rate 61 Assessment and Plan Final Anesthetic Review History of Problems with Anesthesia: No
[2025-04-11] VITALS (10 sets, daily range): BP systolic 96–166; BP diastolic 47–80; PULSE 63–96; RESP 16–20; TEMP 36.1–36.7; O2SAT 98–100; BMI 22.7
--- NOTE | ~2025-04-11 | FL_ITS ---
EXAMINATION: FL GUIDANCE ONLY HISTORY: retrograde bilateral COMPARISON: Correlation is made with an unenhanced CT of the abdomen and pelvis dated 01/24/2025. TECHNIQUE: Fluoroscopy time: 7.2 seconds. Cumulative Dose: 1.4705 mGy. DAP: 0.6397 mGym2 Images: 2. FINDINGS: Fluoroscopic spot films of the pelvis demonstrate opacification of both distal ureters, which are dilated. No filling defects are identified. FL/FL guidance in OR IMPRESSION: Fluoroscopy during procedure. Please see procedure report for additional information. Electronically signed by: Romaine Geiger MD 04/11/2025 08:22 AM EDT
[2025-04-11] MEDS: Lactated Ringers 1,000 ML 100 ML IVCONT (06:21)
--- NOTE | 2025-04-11 07:24 | MHC.SHP ---
Pre-Procedural Eval Section A - 24 Hr Update-Section A only Date of Service: 04/11/25 The patient is an INPATIENT: No Changes since office visit: No Cold of Flu in the past 2 weeks, No New Medical Problems, No Changes in Medication and No Patient answered all questions The patient has been examined within 24 hours of the surgical procedure. The History & Physical has been completed within 30 days and I have reviewed it.: Yes Section B - Complete if H&P > 30 days Chief Complaint: Hydronephrosis with renal and ureteral calculous o Details of Present Illness: Planned cystoscopy, bladder biopsy, bilateral retrogrades Allergies: Allergies Allergy/AdvReac Type Severity Reaction Status Date / Time No Known Allergies Allergy Verified 02/18/25 09:28 Review of Systems Sugical H&P ROS: Negative: Constitution, Cardiovascular, Respiratory, Neurological, Psychiatric, Hem-Onc, Allergic/Immunologic, Gastrointestinal, Genitourinary, Musculoskeletal, Integumentary, Endocrine and Eyes/Ears/Nose/Throat Exam Surgical H&P Exam: Normal: HEENT, Normal: Heart, Normal: Lungs, Normal: Extremities, Normal: Abdomen, Normal: Skin and Normal: Neurological Plan Diagnosis/Plan: Unchanged I have reviewed the history and physical and performed a pertinent physical examination on my patient. No changes have occurred unless specified. Time Spent With Patient Time: Total time managing care of this patient today ____ minutes.
--- NOTE | 2025-04-11 07:59 | W.PM.OPN ---
Operative Note Operative Note Date of Service: 04/11/25 Narrative: PreOperative Diagnosis: Bilateral hydronephrosis, bladder wall thickening on CT Post Operative Diagnosis: Bilateral hydronephrosis secondary to J hooking, grade 3/4 trabeculation of bladder with high voiding pressures Procedure: 1. Cystoscopy with bilateral retrograde Surgeon: Dr Alireza Womack Anesthesia: LMA Indications for procedure: Bilateral hydronephrosis and bladder wall thickening on CT Procedure: After informed consent was verified the patient was brought to the operating room and placed in a supine position. Anesthesia was administered per protocol. The patient was placed in a modified dorsal lithotomy position and prepped and draped in a sterile fashion. Safety pause time-out was performed. Antibiotics being given. Twenty-two Slovenian cystoscope inserted per urethra. No abnormality noted of anterior posterior urethra. Small prostate. Open bladder neck. Significant trabeculation noted on bladder entry. Large bladder capacity. Grade 3/4 trabeculation across the dome of the bladder. This would explain the bladder wall thickening seen on CT scan. No suspicious lesions seen. Clear J hooking seen on the left side. Ureteric orifice seen with large cellule/diverticulum sitting lateral and creating anatomic distortion. Retrograde examination performed. 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 Similar findings on right side although not as pronounced. During cystoscopy both sides did show jetting of urine. He tolerated the procedure well extubated in the operating room and transferred in stable condition to the recovery area Pathology: [] Drains: []
== END 2025-04-11 10:06 | disposition home or self-care (01) ==
PROVIDERS: PCP Student in an Organized Health Care Education/Training Program; Visit Provider Urology
PROC: (CPT 52005; principal; 2025-04-11 07:30)
DX: N13.2 Hydronephrosis with renal and ureteral calculous obstruction (principal); N32.0 Bladder-neck obstruction; N13.722 Vesicoureteral-reflux with reflux nephropathy without hydroureter, bilateral; N32.89 Other specified disorders of bladder; Z86.69 Personal history of other diseases of the nervous system and sense organs; G25.0 Essential tremor; R13.10 Dysphagia, unspecified; I10 Essential (primary) hypertension; F79 Unspecified intellectual disabilities; E78.5 Hyperlipidemia, unspecified; R73.03 Prediabetes; E55.9 Vitamin D deficiency, unspecified; Z98.890 Other specified postprocedural states
CPT/HCPCS: 52005; J2003; J2405; J2704; J3010; Q9967

== ENCOUNTER → 2025-04-11 05:58 | Outpatient (BNV) | payer MEDICARE, MEDICAID, SELFPAY | PROVIDERS: PCP Student in an Organized Health Care Education/Training Program; Visit Provider Urology | DX: N13.30 Unspecified hydronephrosis (principal); N32.89 Other specified disorders of bladder; R93.5 Abnormal findings on diagnostic imaging of other abdominal regions, including retroperitoneum | CPT/HCPCS: 52000; 74420 ==

== ENCOUNTER 2025-06-23 09:50 | Outpatient (REF) | payer MEDICARE, MEDICAID, SELFPAY ==
--- OUTSIDE RECORDS SUMMARY | 2025-06-23 15:44 | XMS_ITS | Encounter Summary ---
Author Organization [employer] Address [address] [facility] 7t [place] [address] Care Team Providers Care Professor Of Religion Name Role Phone Elizabeth Sparks MD Primary Care Pro vider Reason for Visit * Reason Comments Med Refill Encounter Details Date Type Department Care Team ([facility] st Contact Info) Description 06/18/2025 Refill [facility] [address] [place] [address] Elizabeth Sparks MD [address] [place] [address] Essential (primary) hypertension Social History Tobacco Use Types Packs/Day Years Used Date Smoking Tobacco: Never Passive Smoke Exposure: Never Smokeless Tobacco: Never Alcohol Use Standard Drinks/Week Comments Never 0 (1 standard drink = 0.6 oz pur e alcohol) Depression Answer Date Recorded Patient Health Questionnaire-9 Score 0 01/28/2025 Patient Health Questionnaire-9 Score 0 01/28/2025 Last PHQ-9: Questionnaire Data Not on file 0 01/28/2025 Housing Stability Answer Date Recorded What is [...] Date Recorded Patient Health Questionnaire-2 Score 0 01/28/2025 Internet Access Answer Date Recorded Internet Access Q1 Yes 10/29/2024 Internet Access Q2 Not on file 10/29/2024 Sex and Gender Information Value Date Recorded Sex Assigned at Male 06/03/2022 10:14 AM EDT Legal Sex Male 10:14 AM EDT Gender Identity Male 06/03/2022 10:14 AM EDT Sexual Orientation Straight 06/03/2022 10 :14 AM EDT documented as of this encounter Plan of Treatment Upcoming Encounters Date Type Department Care Team (Late st Contact Info) Description 08/16/2025 2:30 PM EST Office Visit [facility] [address] [place] [address] Lynnette Dickerson, OD [address] [place] [address] 09/02/2025 1:30 PM EST Office Visit [facility] [address] [place] [address] Elizabeth Sparks MD [address] [place] [address] documented as of this encounter Visit Diagnoses Diagnosis Essential (primary) hypertension Unspecified essential hypertension documented in this encounter Additional Health Concerns Assessment Noted Time PHQ-9 Depression Total Score: 0 01/29/20 25 11:39 AM EDT documented as of this encounter Care Teams Professor Of Religion Relationship Specialty Start Date End Date Elizabeth Sparks MD [address] [place] [address] PCP - General Internal Medicine 04/14/23 documented as of this encounter
--- OUTSIDE RECORDS SUMMARY | 2025-06-23 15:44 | XMS_ITS | Encounter Summary ---
Author Organization [employer] Address [address] [place] [address] [address] [place] [address] Care Team Providers Care Waterproof Bag Sewer Name Role Phone Essie Clinton FICTION AND NONFICTION PROSE WRITER Primary Care Provider [phone] Elizabeth Sparks MD Primary Care Pro vider Encounter Details Date Type Department Care Team (Late st Contact Info) Description 10/22/2022 Telephone [facility] [address] [place] [phone] Brianne Grossman LPN Social History Tobacco Use [...] Description 08/16/2025 2:30 PM EST Office Visit [facility] [address] [place] [address] Lynnette Dickerson, OD [address] [place] [address] 09/02/2025 1:30 PM EST Office Visit [facility] [address] [place] [address] Elizabeth Sparks MD [address] [place] [address] documented as of this encounter Visit Diagnoses Not on filedocumented in this encounter Care Teams Waterproof Bag Sewer Relationship Specialty Start Date End Date Mary BethEssie seo FNP [address] [place] [address] PCP - General Family Medicine 03/27/22 04/13/23 Elizabeth Sparks MD [address] [place] [address] PCP - General Internal Medicine 04/14/23 documented as of this encounter
--- OUTSIDE RECORDS SUMMARY | 2025-06-23 15:44 | XMS_ITS | Clinical Summary ---
Author Organization [employer] [facility] ity Address [address] [place] [address] Care Team Providers Care Clinical Biostatistics Director Name Role Phone Unavailable Primary Care Provider [...] Health Maintenance Due Date Last Done Comments Colorectal Cancer Screening: Colonoscopy 1971 DTaP,Tdap,and Td Vaccines (1 - Tdap) 1990 Hepatitis B Vaccines (1 of 3 - 19+ 3-dose series) 1990 Pneumococcal Vaccine: 50+ Ye ars (1 of 1 - PCV) 2021 Zoster Vaccines (1 of 2) 2021 Cholesterol Screening (Lipid Panel) 05/11/2024 HIV Screening 05/11/2024 Hepatitis C Screening 05/11/2024 Social Influencers of Health Screening 05/11/2024 Depression Screening 08/04/2024 COVID-19 Vaccine ( - 2024-2 6 season) 2025 Influenza Vaccine (#1) 2025 RSV Immunization Adult Patie nts (1 - 1-dose 75+ series) 2046 HIB Vaccines Aged Out No longer eligi [...]
--- OUTSIDE RECORDS SUMMARY | 2025-06-23 15:44 | XMS_ITS | Encounter Summary ---
Author Organization [employer] Address [address] [facility] [address] [place] [address] Care Team Providers Care Outside Parts Sales Name Role Phone Elizabeth Sparks MD Primary Care Pro vider Encounter Details Date Type Department Care Team (Late Contact Info) Description 04/18/2023 Orders Only [facility] [address] [place] [address] Kimmie Do LPN Social History Tobacco Use [...] Description 08/16/2025 2:30 PM EST Office Visit [facility] [address] [place] [address] Lynnette Dickerson, OD [address] [place] [address] 09/02/2025 1:30 PM EST Office Visit [facility] [address] [place] [address] Elizabeth Sparks MD [address] [place] [address] documented as of this encounter Visit Diagnoses Not on filedocumented in this encounter Care Teams Outside Parts Sales Relationship Specialty Start Date End Date Elizabeth Sparks MD [address] [place] [phone] PCP - General Internal Medicine 04/14/23 documented as of this encounter
--- OUTSIDE RECORDS SUMMARY | 2025-06-23 15:44 | XMS_ITS | Clinical Summary ---
Author Organization [employer] Address [address] [facility] 7t [place] [address] Care Team Providers Care Stripper And Opaquer Apprentice Name Role Phone Elizabeth Sparks MD Primary [...] (DRY EYE). 15 mL 06/17/20 24 Active valsartan-hydroC HLOROthiazide (Diovan-HCT) 160-25 MG tabletIndication s:Essential (primary) hypertension TAKE 1 TABLET BY MOUTH [...] crush or chew. 180 capsule 11/11/19 25 Active cloNIDine (Catapres) 0.1 MG tablet TAKE 1 TABLET BY MOUTH AT BEDTIME NEEDED 90 tablet 03/30/20 25 Active amLODIPine (Norvasc) 10 MG tabletIndication s:Essential (primary) hypertension TAKE 1 TABLET BY MOUTH EVERY DAY 90 tablet 1 06/20/20 25 Active amLODIPine (Norvasc) 10 MG tabletIndication s:Essential (primary) hypertension TOME MIKO TABLETA TOS LOS SAALS 90 tablet 1 11/11/19 25 025 Discontinued Active Problems Problem Noted Date Diagnosed Date Cognitive developmental delay 07/23/2024 Assessment & Plan (07/23/2024 12:20 PM EST): Pt will attend day program Friday-Friday Sister will serve as health proxy and continue NETSUITE DEVELOPER services Rash 07/23/2024 Assessment & Plan (07/23/2024 12:21 PM EST): No evidence of rash today Pt reports rash has seasonal component Referral to derm per pt request Encounter for immunization 07/23/2024 Left anterior fascicular block (LAFB) 10/31/2023 Assessment & Plan (07/23/2024 12:20 PM EST): Pt will continue to f/u with cards prn Seizures (CMS/HCC) 10/30/2023 Health care maintenance 06/30/2023 Assessment & [...] or around 10/2024. 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 Date Type Department Care Team Description 06/18/2025 Refill [facility] [address] [place] [address] Elizabeth Sparks MD Essential (primary) hypertension 06/17/2025 Telephone [facility] [address] [place] [address] Elizabeth Sparks MD 04/11/2025 Orders Only [facility] External Provider, [facility] 04/08/2025 Telephone [facility] [address] [place] [address] Elizabeth Sparks MD Referral 03/30/2025 Refill [facility] [address] [place] [address] Elizabeth Sparks MD from Last 3 Months Immunizations Immunization Administration Dates Next Due Hep A, Adult 05/13/2012,10/09/2011 Hep B, adult 05/13/2012,11/12/2011,10/09/2011 Influenza injectable quadriv alent IIV4 with preservative 09/11/2017,09/10/2016 Influenza injectable quadriv alent preservative free 06/30/2023,05/06/2021,06/20/2020,2018 Influenza, IIV3, injectable 08/29/2014 Influenza, Split (incl. li fied surface antigen) 04/29/2013,05/13/2012 MMR 05/11/2004 Pfizer Covid-19 Vaccine 12+ 07/21/2024, 4 Pneumococcal Conjugate PCV 20 07/21/2024 TD (adult), [...] Passive Smoke Exposure: Never Smokeless Tobacco: Never Tobacco Cessation:Counseling Given: Not Answered Alcohol Use Standard Drinks/Week Comments Never 0 [...] Sign Reading Time Taken Comments Blood Pressure 130/70 01/28/2025 12:29 PM EDT Pulse 84 01/28/2025 11:31 AM EDT Temperature 36.4 C (97.6 F) 01/28/2025 11:31 AM EDT Respiratory Rate 20 01/28/2025 11:31 AM EDT Oxygen Saturation 98% 11/10/2024 2:23 PM EDT Inhaled Oxygen Concentration - - Weight 64.5 kg (142 lb 3.2 oz) 01/28/2025 11:31 AM EDT Height 167.1 cm (5' 5.8 ) 01/28/2025 11:31 AM ED T Body Mass Index 23.09 01/28/2025 11:31 AM EDT Plan of Treatment Upcoming Encounters Date Type Department Care Team (Late st Contact Info) Description 08/16/2025 2:30 PM EST Office Visit [facility] [place] [address] Tuan, Lynnette, OD [address] [place], [place] [phone] 09/02/2025 1:30 PM EST Office Visit [facility] [address] [place], [place] [phone] Elizabeth Sparks MD [address] [place] [address] Health Maintenance Due Date Last Done Comments CT Colonography 1971 FIT DNA/Cologuard 1971 FIT 1971 FOBT 1971 Sigmoidoscopy 1971 COVID-19 Vaccine ( season) 2025 07/21/2024, 10/30/2023, 07/04/2021, Additional history exists Influenza Vaccine (#1) 2025 , 05/06/2021, 06/20/2020, Additional history exists SDOH Screening 10/29/2025 10/29/2024 Disability Screening 11/10/2025 11/10/2024 Depression Screening 01/28/2026 01/28/2025, 01/29/20 Tobacco Screening 02/06/2026 02/06/2025 Lipid Panel 11/13/2029 11/13/2024, 08/01/2024, 07/05/2023, Additional history exists Colonoscopy 10/03/2031 Colorectal Cancer [...] 11/12/2011, 10/09/2011 Zoster Vaccines Completed 04/02/2021, 01/26/2021 HIV Screening Completed 07/05/2023 Hepatitis C Screening Completed 07/05/2023 Pneumococcal Vaccine: 50+ Years Completed 07/21/2024 Alcohol/Substance Use Screening Discontinued HIB Vaccines Aged Out No [...] Procedure Name Priority Date/Time Associated Diagnosis Comments FL GUIDANCE IN OR Routine 04/11/2025 7:4 4 AM EDT LIPID PANEL, STANDARD Routine 11/13/2024 7:31 AM EDT Health care maintenance HEPATITIS C AB W/REFL TO HCV RNA, QN, PCR Routine 07/05/2023 10:06 AM EST Annual physical exam HIV 1/2 ANTIGEN/ANTIBODY, FOURTH GENERATION W/RFL Routine 07/05/2023 10:06 AM EST Annual physical exam from Last 3 Months or Most Recently Relevant to Health Maintenance Results * FL Guidance in OR (04/11/2025 7:44 AM EDT) Anatomical Region Laterality Modality X-Ray Angiograph y 04/11/2025 7:44 AM EDT Narrative 04/11/2025 8:25 AM EDT [address] [address] Fluoroscopy Report Signed Patient: Shan Mendez MR#: [id number] : 1970 Acct:[id number] Age/Sex: 55 / M ADM Date: 04/11/25 Loc: HO.SSS Attending Dr: Alireza Womack MD Ordering Physician: Alireza Womack MD Date of Service: 04/11/25 Procedure(s): FL guidance in OR Accession Number(s): [id number] cc: Alireza Womack MD; Elizabeth Sparks MD Reason for Exam: retrograde bilateral EXAMINATION: FL GUIDANCE ONLY HISTORY: retrograde bilateral COMPARISON: Correlation is made with an unenhanced CT of the abdomen and pelvis dated 01/24/2025. TECHNIQUE: Fluoroscopy time: 7.2 seconds. Cumulative Dose: 1.4705 mGy. DAP: 0.6397 mGym2 Images: 2. FINDINGS: Fluoroscopic spot films of the pelvis demonstrate opacification of both distal ureters, which are dilated. No filling defects are identified. FL/FL guidance in OR IMPRESSION: Fluoroscopy during procedure. Please see procedure report for additional information. Electronically signed by: Romaine Geiger MD 04/11/2025 08:22 AM EDT RP Dictated By: Romaine Geiger MD Signed By: <Electronically signed by Romaine Geiger MD in OV> 04/11/25 0822 DD/ 0744 TD/TT: 04/11/25 0757 Crester: Procedure Note Donotuseinterpreter, Image - 04/11/2025 [place] [address] Fluoroscopy Report Signed Patient: Shan MendezMR#: [id number] : 1970Acct:[id number] Age/Sex: 55 / MADM Date: 04/11/25 Loc: HO[facility] Attending Dr: Alireza Womack MD Ordering Physician: Alireza Womack MD Date of Service: 04/11/25 Procedure(s): FL guidance in OR Accession Number(s): [id number] cc: Alireza Womack MD; Elizabeth Sparks MD Reason for Exam: retrograde bilateral EXAMINATION: FL GUIDANCE ONLY HISTORY: retrograde bilateral COMPARISON: Correlation is made with an unenhanced CT of the abdomen and pelvis dated 01/24/2025. TECHNIQUE: Fluoroscopy time: 7.2 seconds. Cumulative Dose: 1.4705 mGy. DAP: 0.6397 mGym2 Images: 2. FINDINGS: Fluoroscopic spot films of the pelvis demonstrate opacification of both distal ureters, which are dilated. No filling defects are identified. FL/FL guidance in OR IMPRESSION: Fluoroscopy during procedure. Please see procedure report for additional information. Electronically signed by: Romaine Geiger MD 04/11/2025 08:22 AM EDT Dictated By: Romaine Geiger MD Signed By: <Electronically signed by Romaine Geiger MD in OV> 04/11/25 0822 DD/ 0744 TD/TT: 04/11/25 0757 Crester: [facility] External Provider IMG IR PROCEDURES Edited Result - Final * (ABNORMAL) Lipid Panel, Standard (11/13/2024 7:31 AM EDT) Triglycerides 155(H) <150 mg/dL [facility] Comment:Desirable Triglyceri de: less than 150 mg/dLBorderline High Triglyceride 150-199 mg/dLHigh Triglyceride: 200-499 mg/dLVery High Triglyceride: greater than or equal to 5OO mg/dL Cholesterol 133 <200 mg/dL [facility] Comment:Desirable Cholestero l: less than 200 mg/dLBorderline High Cholesterol: 200-239 mg/dLHigh Cholesterol: greater than 239 mg/dL LDL Cholesterol Calculated 71 <100 mg/dL [facility] Comment:Desirable LDL: less than 100 mg/dLNear Optimal/Above Optimal LDL: 110- 129 mg/dLBorderline High LDL: 130-159 mg/dLHigh LDL: 160-189 mg/dLVery High LDL: greater than or equal to 190 mg/dL HDL Cholesterol 31(L) >40 mg/dL [facility] Comment:Desirable HDL: great er than 40 mg/dL Note: This HDL assay may give artificially low results in patients with liver disease. Blood Venous blood specimen / Unknown 11/13/2024 7:31 AM EDT 11/13/2024 7:31 AM EDT Elizabeth Craig MD LAB BLOOD ORDERAB LES Final Result [facility] [address] [place] [phone] * Hepatitis C Antibody with Reflex to HCV, RNA, Quantitative, Real-Time PCR (07/05/2023 10:06 AM EST) [facility] Hepatitis C Antibody Nonreactive Nonreactive [facility] Comment:Antibodies to HCV no t detected; does not exclude early acuteHCV infection. Blood Venous blood specimen / Unknown 07/05/2023 10:06 AM EST 07/05/2023 10:06 AM EST us Elizabeth Craig MD LAB BLOOD ORDERAB LES Final Result Performing Organization Address City/[facility]/ZIP Co de Phone Number [facility] [address] [place] [phone] * HIV-1/2 Antigen and Antibodies, Fourth Generation, with Reflexes (07/05/2023 10:06 AM EST) [facility] HIV AB/AG Nonreactive Nonreactive [facility] Comment:HIV-1 p24 Ag and/or HIV-1/HIV-2 Ab not detected.A test result that is nonreactive does not exclude thepossibility of exposure to or infection with HIV-1 and/orHIV-2. Nonreactive results in this assay for individualswith prior exposure to HIV-1 and/or HIV-2 may be due toantigen and antibody levels that are below the limit ofdetection of this assay.The [employer] HIV Ag/Ab Combo assay result andsupplemental assay results should be interpreted inconjunction with the patient's clinical presentation,history and other laboratory results. If the results areinconsistent with clinical evidence, additional testing issuggested to confirm the result. Blood Venous blood specimen / Unknown 07/05/2023 10:06 AM EST 07/05/2023 10:06 AM EST us Elizabeth Craig MD LAB BLOOD ORDERAB LES Final Result Performing Organization Address City/[facility]/ZIP Co de Phone Number [facility] [address] [place] [phone] from Last 3 Months or Most Recently Relevant to Health Maintenance Insurance MEDICARE Member Subscriber Plan / Payer (Ef fective 2004-Present) Name:Shan Zapata Member ID:[id number] Relation to Subscriber:Self Name:Shan Zapata Subscriber ID:[id number] Payer ID:STATE Group ID:Not on file Type:Medicare Address: [place] [employer] [facility] [address] [address] [facility] Advance Directives Documents on File Type Date Recorded Patient Sociology Teacher Expl anation Advance Directives and Living Will 01/30/2024 Health Care Proxy 01/30/24 Care Teams Stripper And Opaquer Apprentice Relationship Specialty Start Date End Date Elizabeth Sparks MD [address] [place] [address] PCP - General Internal Medicine 04/14/23
--- OUTSIDE RECORDS SUMMARY | 2025-06-23 15:44 | XMS_ITS | Encounter Summary ---
Author Organization [employer] Address [address] [facility] 7t [place] [address] Care Team Providers Care Computer Artist Name Role Phone Elizabeth Sparks MD Primary Care Pro vider Encounter Details Date Type Department Care Team ([facility] st Contact Info) Description 12/15/2023 Telephone [facility] MEDICINE [address] [place], [place] [phone] Elizabeth Sparks MD [address] [place] [address] Social History Tobacco Use Types Packs/Day Years [...] Description 08/16/2025 2:30 PM EST Office Visit [facility] OPTOMETRY [address] [place] [address] Tuan, Lynnette, OD [address] [place] [address] 09/02/2025 1:30 PM EST Office Visit [facility] MEDIC[facility] [address] [place] [address] Elizabeth Sparks MD [address] [place] [address] documented as of this encounter Visit Diagnoses Not on filedocumented in this encounter Additional Health Concerns Assessment Noted Time PHQ-9 Depression Total Score: 3 06/30/20 23 2:15 PM EST documented as of this encounter Care Teams Computer Artist Relationship Specialty Start Date End Date Elizabeth Sparks MD [address] [place] [address] PCP - General Internal Medicine 04/14/23 documented as of this encounter
== END 2025-06-23 09:51 | disposition home or self-care (01) ==
LOC: HO.LAB 09:50
PROVIDERS: PCP Student in an Organized Health Care Education/Training Program; Visit Provider Urology
DX: N13.30 Unspecified hydronephrosis (principal)
CPT/HCPCS: 51798; 87086; 99212

== ENCOUNTER 2025-06-23 09:50 | Outpatient (AMB) | payer MEDICARE, MEDICAID, SELFPAY ==
--- NOTE | 2025-06-23 09:56 | MHC.OFFVIS ---
Intake Visit Reasons: f/u PVR Intake Note: Patient is present for follow up patient is having urinary accidents Urology Medication:Tamsulosin Antibiotic Allergy:NONE Blood Thinner:NONE PVR:203 mls Stranding Machine Operator Required: No Accompanied by: Sister Allergies No Known Allergies Allergy (Verified 06/23/25 09:58) HPI Comments Details: Shan is a Bulgarian-speaking male with developmental delay. He is a patient of Dr. Craig. He seen for the following urologic conditions. - impaired bladder emptying Translation provided by qualified medical reimbursement manager Accompanied by family member Remains on tamsulosin May benefit from bladder stabilization medications however PVR high at 200 Impaired bladder performance - high pressure voiding system Longstanding issue with urination Recent CT imaging showing bladder thickening and bilateral hydronephrosis Creatinine 1.0 Completed lower tract evaluation in operating room - Significant trabeculation noted on bladder entry. Large bladder capacity. Grade 3/4 trabeculation across the dome of the bladder. This would explain the bladder wall thickening seen on CT scan. No suspicious lesions seen [facility] Medical History (Updated 06/23/25 @ 10:19 by Alireza Womack MD) GERD (gastroesophageal reflux disease) Dysphagia Vitamin D deficiency Hx of seizure disorder Hyperlipidemia Kinetic tremor Anxiety Prediabetes Mental disability HTN (hypertension) Surgical History Hx of esophagogastroduodenoscopy Hx of colonoscopy Hx of hernia repair Family History Mother Stomach cancer Chronic heart failure Social History Alcohol intake: never Patient Tobacco Use Status: Never used Tobacco Current occupational status: disabled Current occupation: left hand Review of Systems Const Denies chills and Denies fever(s) Card Reports no additional complaints and Denies syncope Resp Denies cough GI Denies abdominal pain and Denies heartburn Reports as per HPI and Denies change in libido Neuro Denies syncope Psych Denies change in libido Endo Denies change in libido Physical Exam Const General: cooperative, healthy appearing, comfortable and no acute distress Orientation/consciousness: patient oriented x3 HEENT Face and sinus: Yes normal facial exam Mouth: moist mucous membranes Neck Neck: Yes normal visual inspection, Yes full ROM and Yes trachea midline Chest Chest palpation & inspection: normal inspection of the chest Resp Effort & Inspection: normal respiratory effort, able to speak in complete sentences and no respiratory distress GI Inspection: Yes normal to inspection Back/Spine/Pelvis Cervical Spine: normal cervical lordosis Thoracic/Lumbar Spine: thoracic and lumbar spine normal to inspection Skin General skin exam: no rashes or lesions noted Neuro General: patient oriented x3, gait normal, tone normal and moves all extremities Extrem General: Yes normal to inspection and Yes capillary refill normal Office Procedures Post Void Residual Post Residual Void Post Void Residual (PVR): 203 [id number] Void Residual by ultrasound Results AMB Urinalysis, Automated UA Leukoctes 70 Salvador/uL Last Edit by Marguerite Guzman [facility] on 06/23/25 10:12 UA Nitrite Negative Last Edit by Marguerite Guzman [facility] on 06/23/25 10:12 UA Urobilinogen 0.2 mg/dL Last Edit by Marguerite Guzman [facility] on 06/23/25 10:12 UA Protein 0 mg/dL Last Edit by Marguerite Guzman [facility] on 06/23/25 10:12 UA pH 6.5 Last Edit by Marguerite Guzman [facility] on 06/23/25 10:12 UA Blood 0 Danie/uL Last Edit by Marguerite Guzman [facility] on 06/23/25 10:12 UA Specific [place] 1.010 Last Edit by Marguerite Guzman [facility] on 06/23/25 10:12 UA Ketone Negative Last Edit by Marguerite Guzman [facility] on 06/23/25 10:12 UA Bilirubin 0 mg/dL Last Edit by Marguerite Guzman [facility] on 06/23/25 10:12 UA Glucose 0 mg/dL Last Edit by Marguerite Guzman [facility] on 06/23/25 10:12 Assessment & Plan Assessment & Plan (1) Hydronephrosis: Code(s): N13.30 - Unspecified hydronephrosis Category: Medical Plan Switch tamsulosin to terazosin May benefit from oxybutynin Medications: New terazosin 10 mg PO BEDTIME 90 caps 1RF 90 days N32.0 - Bladder-neck obstruction Discontinued tamsulosin Discontinued Reason: Patient Completed Course 0.4 mg PO BEDTIME 90 days 90 caps 1RF N13.8 - Other obstructive and reflux uropathy, N32.0 - Bladder-neck obstruction, N40.1 - Benign prostatic hyperplasia with lower urinary tract symptoms Patient Instructions: This note is constructed using voice recognition software. While every effort has been made to ensure accuracy resistor winder errors may have been included. Imaging studies, laboratory and physical exam results were discussed and reviewed in detail. No major barriers to patient understanding were identified. An opportunity to ask questions regarding the treatment plan was provided. All questions were answered. The patient expressed understanding and agreement with the above treatment plan. The patient is aware they should contact our office by phone for worsening of their current condition or the appearance of new urologic symptoms. Compliance is encouraged with any medications and followup testing that is ordered. It is a privilege to participate in the urologic care of your patient. If you have any questions or concerns regarding treatment for the above conditions, or other urologic issues, please do not hesitate to contact me. The office telephone contact is [phone]. Sincerely, Dr Alireza Womack MD, [facility] - Urology Compassionate Specialist Care for the Genitourinary System Coding Level of Care Code Est Pt Level 3 (69863) Complex EM visit Add On G2211 Diagnoses Hydronephrosis N13.30 CPT Codes Post Residual Void - PVR CPT Code: 26434-Lozk Void Residual by ultrasound ([id number])
== END 2025-06-23 10:21 | disposition home or self-care (01) ==
LOC: HO.HUSH 09:51
PROVIDERS: PCP Student in an Organized Health Care Education/Training Program; Visit Provider Urology
DX: N13.30 Unspecified hydronephrosis (principal)
CPT/HCPCS: 99213; G2211